=== PATIENT | female | born 1960 | race Caucasian/White ===

== ENCOUNTER 2020-01-08 15:08 | Outpatient (REF) | payer MEDICAID, SELFPAY ==
--- NOTE | 2020-01-08 | XR_ITS ---
EXAMINATION: XR CHEST CLINICAL INFORMATION: Shortness of breath. COMPARISON: Chest x-ray 02/26/2009 TECHNIQUE: 2 views of the chest were obtained. FINDINGS: No significant abnormality is noted involving the heart, lungs, mediastinum, bony thorax or soft tissues. XR/XR chest 2V IMPRESSION: Unremarkable examination.
== END 2020-01-08 15:09 | disposition home or self-care (01) ==
LOC: HO.HMGCX 15:08
PROVIDERS: PCP Internal Medicine; Visit Provider Internal Medicine
DX: R06.02 Shortness of breath (principal); Z87.09 Personal history of other diseases of the respiratory system
CPT/HCPCS: 71046

== ENCOUNTER 2021-04-08 13:18 | Outpatient (REF) | payer MEDICAID, SELFPAY ==
--- NOTE | ~2021-04-08 | XR_ITS ---
EXAMINATION: XR CHEST CLINICAL INFORMATION: Cough. Covid 19. COMPARISON: Chest radiograph dated 01/08/2020. TECHNIQUE: 2 views of the chest were obtained. FINDINGS: The lungs are clear. The cardiomediastinal silhouette is normal in size. There is no pleural effusion or pneumothorax. No acute osseous abnormality. XR/XR chest 2V IMPRESSION: No acute cardiopulmonary findings.
== END 2021-04-08 13:19 | disposition home or self-care (01) ==
LOC: HO.HMGCX 13:18
PROVIDERS: PCP Internal Medicine; Visit Provider Internal Medicine
DX: R05.9 Cough, unspecified (principal); Z86.16 Personal history of COVID-19
CPT/HCPCS: 71046

== ENCOUNTER 2021-06-17 15:52 | Outpatient (REF) | payer MEDICAID, SELFPAY ==
--- NOTE | ~2021-06-17 | XR_ITS ---
EXAMINATION: XR LUMBOSACRAL SPINE CLINICAL INFORMATION: Low back pain. Pain SI joint. COMPARISON: 04/03/2015 TECHNIQUE: Three views of the lumbosacral spine. FINDINGS: There are 5 nonrib-bearing lumbar vertebra. No acute fracture, spondylolisthesis, or spondylolysis is identified. There is mild narrowing of the L5-S1 disc space with some mild sclerosis about the facet joints consistent with facet arthropathy. Sacroiliac joints appear unremarkable. Pedicles are intact. XR/XR lumbar spine 2-3V IMPRESSION: Mild degenerative change of the lumbar spine as described with bilateral facet arthropathy at the L5-S1 level. No significant sacroiliac joint abnormality appreciated.
== END 2021-06-17 15:53 | disposition home or self-care (01) ==
LOC: HO.HMGCX 15:52
PROVIDERS: PCP Internal Medicine; Visit Provider Internal Medicine
DX: M54.50 Low back pain, unspecified (principal)
CPT/HCPCS: 72100

== ENCOUNTER 2021-07-01 09:08 | Outpatient (REF) | payer MEDICAID, SELFPAY ==
--- NOTE | ~2021-07-01 | MM_ITS ---
EXAMINATION: BONE DENSITOMETRY CLINICAL INDICATION: Menopause. COMPARISON: Previous BD dated 03/30/2018 and baseline BD dated 03/26/2017. TECHNIQUE: Using a Qubit DXA System (software version: 13.1) manufactured by [employer], dual-energy x-ray absorptiometry was performed of the lumbar spine and left hip. The images are of good technical quality. Summary results are attached. FINDINGS: AP SPINE L1-L4: Current: BMD 0.857 g/cm2, Z-score -1.3, T-score -2.7, osteoporosis, 8.1% decrease from previous, 5.9% decrease from baseline (<5% change is not significant). Prior: BMD 0.933 g/cm2. Baseline: BMD 0.911 g/cm2. LEFT FEMUR, NECK: Current: BMD 0.628 g/cm2, Z-score -1.6, T-score -2.9, osteoporosis. Prior: BMD 0.713 g/cm2. Baseline: BMD 0.759 g/cm2. LEFT FEMUR, TOTAL: Current: BMD 0.638 g/cm2, Z-score -1.8, T-score -2.9, osteoporosis, 12.5% decrease from previous, 14.9% decrease from baseline (<5% change is not significant). Prior: BMD 0.729 g/cm2. Baseline: BMD 0.750 g/cm2. IDENTIFIED RISK FACTORS: Menopause, height loss, glucocorticoids (chronic), history of fracture (adult), tobacco use (current smoker). HISTORY OF FRACTURE: Ribs. MEDICATIONS: Calcium, vitamin D. MM/XR DEXA axial skeleton IMPRESSION: 1. DIAGNOSIS: Osteoporosis based on the lowest T-score value of -2.9 in the femur neck and total femur applying World Health Organization criteria. 2. 10-YEAR FRACTURE RISK PREDICTION, FRAX: According to the guidelines, FRAX calculation should only be performed on patients in the osteopenia bone density category. Therefore, FRAX was not performed on this patient. 3. Treatment Recommendations: NOF guidelines recommend consideration for treatment in postmenopausal women and men age 50 and older presenting with the following: -A hip or vertebral (clinical or morphometric) fracture. -T-score less than or equal to -2.5 at the femoral neck or spine after appropriate evaluation to exclude secondary causes. -Low bone mass at the hip or spine and a 10-year fracture probability by FRAX of greater than or equal to 3% for hip fracture or greater than or equal to 20% for major osteoporotic fracture based on the [place] adapted WHO algorithm. 4. Other Recommendations: All treatment decisions require clinical judgment and consideration of individual patient factors, including patient preferences, comorbidities, previous drug use, risk factors not captured in the FRAX model (e.g. frailty, falls, vitamin D deficiency, increased bone turnover, interval significant decline in bone density) and possible under or overestimation of fracture risk by FRAX. Additional medical evaluation for secondary cause of low bone mineral density may be appropriate. FUTURE SCAN RECOMMENDATION: People with diagnosed cases of osteoporosis or at high risk for fracture should have regular bone mineral density tests. For patients eligible for Medicare, routine testing is allowed once every 2 years. The testing frequency can be increased to one year for patients who have rapidly progressing disease, those who are receiving or discontinuing medical therapy to restore bone mass, or have additional risk factors.
--- NOTE | ~2021-07-01 | MM_ITS ---
EXAMINATION: MM SCREENING DIGITAL BREAST TOMOSYNTHESIS, BILATERAL CLINICAL INFORMATION: Screening. Asymptomatic. The lifetime risk of breast cancer based on the Tyrer-Cuzick Model is 6%. COMPARISON: Mammography: 03/30/2018, 03/26/2017, 02/01/2013 TECHNIQUE: Digital breast tomosynthesis is performed in both the craniocaudal and mediolateral oblique views along with computer-aided detection (CAD). Synthesized 2D images are generated from the tomosynthesis. FINDINGS: There are scattered areas of fibroglandular density (ACR BI-RADS breast composition Category b). There are no significant masses, abnormal calcifications, or other abnormalities. There is no developing density or architectural abnormality. The axilla and skin contours are unremarkable. No significant changes. MM/MM tomosynthesis screening BI IMPRESSION: No mammographic evidence of malignancy. ASSESSMENT: BI-RADS 1: Negative RECOMMENDATION: Routine annual mammography screening. This patient's information was entered into a reminder system with a target due date for their next mammogram.
== END 2021-07-01 09:09 | disposition home or self-care (01) ==
LOC: HO.MAMMO 09:08
PROVIDERS: PCP Internal Medicine; Visit Provider Internal Medicine
DX: Z12.31 Encounter for screening mammogram for malignant neoplasm of breast (principal); Z13.820 Encounter for screening for osteoporosis; R10.9 Unspecified abdominal pain; F17.210 Nicotine dependence, cigarettes, uncomplicated; Z78.0 Asymptomatic menopausal state; Z79.899 Other long term (current) drug therapy
CPT/HCPCS: 77063; 77067; 77080

== ENCOUNTER → 2021-09-18 14:10 | Outpatient (BNVA) | payer MEDICAID, SELFPAY | PROVIDERS: PCP Internal Medicine; Visit Provider Hospitalist | DX: J44.9 Chronic obstructive pulmonary disease, unspecified (principal); J96.10 Chronic respiratory failure, unspecified whether with hypoxia or hypercapnia; F17.200 Nicotine dependence, unspecified, uncomplicated | CPT/HCPCS: 94618; 99202 ==

== ENCOUNTER 2021-09-23 09:36 | Outpatient (REF) | payer MEDICAID, SELFPAY ==
--- NOTE | 2021-09-23 | PFT_ITS ---
FLOWS: FEV1 27% of predicted at 0.58 L. FVC 61% of predicted at 1.68 L. Positive bronchodilator response. LUNG VOLUMES: Total lung capacity 112% of predicted at 4.85 L. Residual volume 205% of predicted at 3.56 L. Slow vital capacity 50% of predicted at 1.30 L. Expiratory reserve volume 57% of predicted at 0.38 L. Diffusion capacity is moderately decreased, diffusion capacity adjust to being mildly decreased after correction for alveolar ventilation. IMPRESSION: Very severe obstructive ventilatory defect with positive bronchodilator response. Increased residual volume suggests air trapping. Decreased diffusion capacity suggests emphysema. Ismael Menchaca MD AP/MODL / [phone]
== END 2021-09-23 09:37 | disposition home or self-care (01) ==
LOC: HO.RESP 09:36
PROVIDERS: PCP Internal Medicine; Visit Provider Internal Medicine
DX: R07.9 Chest pain, unspecified (principal)
CPT/HCPCS: 94060; 94727; 94729

== ENCOUNTER → 2021-11-11 10:00 | Outpatient (BNVA) | payer MEDICAID, SELFPAY | PROVIDERS: PCP Internal Medicine; Visit Provider Hospitalist | DX: J44.9 Chronic obstructive pulmonary disease, unspecified (principal); J96.10 Chronic respiratory failure, unspecified whether with hypoxia or hypercapnia; F17.210 Nicotine dependence, cigarettes, uncomplicated | CPT/HCPCS: 99212 ==

== ENCOUNTER 2021-11-14 13:41 | Outpatient (REF) | payer MEDICAID, SELFPAY ==
--- NOTE | ~2021-11-14 | CT_ITS ---
EXAMINATION: CT CHEST SCREENING CLINICAL INFORMATION: Nicotine dependence. Former smoker 1 pack per day x43 years. Quit smoking. COMPARISON: Chest x-ray 04/08/2021. TECHNIQUE: Multidetector volumetric CT imaging of the chest is performed without contrast using low dose technique. Additional 2D coronal and sagittal reformatted images and axial 3D maximum intensity projection (MIP) images are generated on the CT workstation. This CT examination was performed using dose optimization techniques as appropriate, variously including the following: *Automated exposure control *Adjustment of mA and/or kV according to patient size (this includes techniques or standardized protocols for targeted exams where dose is matched to indication/reason for exam; i.e. extremities or head) *Use of iterative reconstruction technique DLP: 48 mGy-cm FINDINGS: LUNGS: The lungs are well expanded and clear. No acute pneumonic process, ground-glass density or pulmonary nodule seen. MEDIASTINUM: The thyroid lobes are symmetric and normal. The central trachea and the bronchi are widely patent. The heart size and the great vessels are normal caliber. No pericardial effusion. No abnormal size mediastinal or hilar lymph nodes. CORONARY ARTERY CALCIFICATION: None visualized on this study. PLEURA: There is no pleural effusion. No pleural mass or thickening. AXILLA: There are small bilateral axillary lymph nodes. The chest wall is unremarkable. UPPER ABDOMEN: The visualized liver, spleen, pancreas, and bilateral adrenal glands are unremarkable. OSSEOUS STRUCTURES: No lytic or sclerotic process seen. There is exaggerated thoracic kyphosis. CT/CT lung screening IMPRESSION: Unremarkable CT chest exam. ASSESSMENT: Lung-RADS category 1: Negative RECOMMENDATION: Low-dose annual CT chest
== END 2021-11-14 13:42 | disposition home or self-care (01) ==
LOC: HO.CT 13:41
PROVIDERS: Visit Provider Physician Assistant Medical
DX: Z12.2 Encounter for screening for malignant neoplasm of respiratory organs (principal); Z87.891 Personal history of nicotine dependence
CPT/HCPCS: 71271; G0296

== ENCOUNTER → 2022-02-10 10:27 | Outpatient (BNVA) | payer MEDICAID, SELFPAY | PROVIDERS: PCP Internal Medicine; Visit Provider Hospitalist | DX: J44.9 Chronic obstructive pulmonary disease, unspecified (principal); J96.10 Chronic respiratory failure, unspecified whether with hypoxia or hypercapnia; R07.9 Chest pain, unspecified; F17.200 Nicotine dependence, unspecified, uncomplicated; Z79.52 Long term (current) use of systemic steroids; Z79.899 Other long term (current) drug therapy | CPT/HCPCS: 99212 ==

== ENCOUNTER → 2022-02-19 13:53 | Outpatient (BNVA) | payer MEDICAID, SELFPAY | PROVIDERS: PCP Internal Medicine; Visit Provider Internal Medicine | DX: R07.89 Other chest pain (principal); R00.1 Bradycardia, unspecified; J96.10 Chronic respiratory failure, unspecified whether with hypoxia or hypercapnia; Z87.891 Personal history of nicotine dependence; Z86.16 Personal history of COVID-19; Z99.81 Dependence on supplemental oxygen; Z79.52 Long term (current) use of systemic steroids; Z79.899 Other long term (current) drug therapy | CPT/HCPCS: 93005; 99202 ==

== ENCOUNTER → 2022-03-09 12:56 | Outpatient (REF) | payer MEDICAID, SELFPAY ==
--- NOTE | 2022-03-09 12:59 | CA_ITS ---
Transthoracic Echocardiogram Patient (Last, First, Middle): Jenny Dumont Anne Gender: Female Date of : 1960 Age: 62 Procedure Date: 03/09/2022 Procedure Type: Transthoracic Echocardiogram Location: OP Height: 152.4 cm Weight: 58.97 kg BSA: 1.55 m2 Heart Rate: 104 bpm BP: 152 / 88 mmHg Automotive General Manager: SB Referring MD: Caden Atkins MD Symptoms: R07.9 - Chest pain, unspecified Study Quality: Adequate ECG Rhythm: Sinus tachycardia Conclusions: - The left ventricular systolic function is mildly decreased. The calculated ejection fraction is 51% by biplane method. - No obvious valvular pathology seen on this study. Findings Left Ventricle Normal left ventricular cavity size. There is normal left ventricular wall thickness. The left ventricular systolic function is mildly decreased. The calculated ejection fraction is 51% by biplane method. There is mild global hypokinesis. Diastolic function is normal for age. LV peak GLS -11.4%. Right Ventricle Normal right ventricular cavity size and systolic function. Atria Both atria are normal in size. Aortic Valve There is a normal trileaflet aortic valve. There is no aortic valve stenosis. There is no aortic valve regurgitation. Mitral Valve The mitral valve appears normal. There is no mitral valve regurgitation. There is no mitral valve stenosis. Pulmonic Valve The pulmonic valve is likely normal. Tricuspid Valve Normal tricuspid valve structure. There is no tricuspid valve regurgitation. There is no evidence of pulmonary hypertension. Great Vessels The aortic annulus, sinuses of valsalva, and asc aorta are normal in size. Venous The inferior vena cava is normal in size and collapses greater than 50% with inspiration. Pericardium/Pleural There is no evidence of pericardial effusion. Prior Study Comparison No prior study available for comparison. Recommendations, Care & Conclusions No obvious valvular pathology seen on this study. Measurements 2D Linear Measurements IVSd: 0.75 0.6-0.9/0.6-1.0 cm LVIDd: 4.46 3.9-5.3/4.2-5.9 cm LVIDd Index: 2.88 2.4-3.2/2.2-3.1 cm/m2 LVIDs: 3.49 2.0-3.6 cm LVPWd: 0.76 0.7-1.1 cm LA Diam: 2.70 2.7-3.8/3.0-4.0 cm LAIDs Index: 1.74 1.5-2.3 cm/m2 LV Mass: 128.80 67-162/88-224 g LV Mass Index: 83.10 43-95/49-115 g/m2 LVOT Diam: 2.00 3.0+(-)1.3 cm 2D Systolic Function EF 4C: 48.10 >55% EF 2C: 54.00 >55% EF BiP: 50.70 >55% Mitral Valve MV Pk E: 0.77 MV PK A: 0.83 MV Decel Time: 151.00 E/A: 0.90 E'Lateral: 7.07 E'Medial: 7.07 E/E' Med: 10.90 E/E' Lat: 10.90 PHT: 44.00 MVA PHT: 5.00 Decel [place]: 5.12 Aortic Valve AoV Pk Waldemar: 1.27 AoV Pk Grad: 6.00 BASSAM: 2.26 LVOT LVOT Pk Waldemar: 0.91 LVOT Mn Waldemar: 0.61 LVOT VTI: 0.17 LVOT Pk Grad: 3.00 LVOT Mn Grad: 2.00 LVOT Diam: 2.00 LVOT Area: 3.14 Diastolic Function MV Pk E: 0.77 MV Pk A: 0.83 E/A: 0.90 E'Medial: 7.07 E/E' Med: 10.90 E' Laterial: 7.07 E/E' Lat: 10.90 Right Ventricle TAPSE (mm): 17.70 TVS' Waldemar: 12.60 Tricuspid Valve TR Pk Waldemar: 1.66 TR Pk Grad: 11.00 RA Press: 3.00 RVSP: 14.00 Great Vessels Aorta Sinus of Valsalva: 2.40 2.0-3.5 cm Ao Asc: 2.70 2.1-3.4 cm Pulmonary Valve PV Pk Waldemar: 0.84 Peak PV Grad: 3.00 Updated in Other Vendor System with Status of Final Caden Atkins MD electronically signed on 03/10/2022 8:27:03 AM with status of Final
== END ==
LOC: HO.CARD 12:56
PROVIDERS: Visit Provider Internal Medicine
DX: R07.9 Chest pain, unspecified (principal)
CPT/HCPCS: 93306; 93356

== ENCOUNTER → 2022-04-23 12:47 | Outpatient (BNVA) | payer MEDICAID, SELFPAY | PROVIDERS: PCP Internal Medicine; Referring Provider Internal Medicine; Visit Provider Internal Medicine | DX: R07.89 Other chest pain (principal); R00.0 Tachycardia, unspecified; J96.10 Chronic respiratory failure, unspecified whether with hypoxia or hypercapnia; J44.9 Chronic obstructive pulmonary disease, unspecified; Z87.891 Personal history of nicotine dependence; Z86.16 Personal history of COVID-19; Z99.81 Dependence on supplemental oxygen | CPT/HCPCS: 99212 ==

== ENCOUNTER 2022-06-12 11:23 | Outpatient (REF) | payer MEDICAID, SELFPAY ==
--- NOTE | ~2022-06-12 | XR_ITS ---
EXAMINATION: XR MANDIBLE CLINICAL INFORMATION: Jaw pain and tenderness COMPARISON: None available. TECHNIQUE: 4 views of the mandible were obtained. FINDINGS: Numerous absent maxillary and mandibular teeth. No appreciable acute fracture or dislocation. Temporomandibular joint spaces are maintained. XR/XR mandible min 4V IMPRESSION: No acute osseous abnormality. If clinical concern persists, CT face be more sensitive for evaluation.
== END 2022-06-12 11:24 | disposition home or self-care (01) ==
LOC: HO.HMGCX 11:23
PROVIDERS: PCP Internal Medicine; Visit Provider Internal Medicine
DX: R68.84 Jaw pain (principal)
CPT/HCPCS: 70110

== ENCOUNTER 2022-07-17 12:17 | Outpatient (REF) | payer MEDICAID, SELFPAY ==
--- NOTE | ~2022-07-17 | XR_ITS ---
EXAMINATION: XR LUMBOSACRAL SPINE CLINICAL INFORMATION: Low back pain COMPARISON: Previous x-ray May 2021 TECHNIQUE: Three views of the lumbosacral spine. FINDINGS: There is curvature of the lower thoracic and upper lumbar spine to the left. Bone alignment is otherwise normal. No fracture or dislocation. Normal disc spaces. Lower lumbar spine facet arthritis. Atherosclerotic disease. XR/XR lumbar spine 2-3V IMPRESSION: Scoliosis and degenerative changes.
== END 2022-07-17 12:18 | disposition home or self-care (01) ==
LOC: HO.HMGCX 12:17
PROVIDERS: PCP Internal Medicine; Visit Provider Internal Medicine
DX: M54.50 Low back pain, unspecified (principal)
CPT/HCPCS: 72100

== ENCOUNTER → 2022-08-04 10:03 | Outpatient (BNVA) | payer MEDICAID, SELFPAY | PROVIDERS: PCP Internal Medicine; Visit Provider Hospitalist | DX: J44.1 Chronic obstructive pulmonary disease with (acute) exacerbation (principal); J96.10 Chronic respiratory failure, unspecified whether with hypoxia or hypercapnia | CPT/HCPCS: 99212 ==

== ENCOUNTER 2022-12-01 10:11 | Outpatient (AMB) | payer MEDICAID, SELFPAY ==
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
[2022-12-01 10:28] VITALS: BP 126/72; PULSE 80; O2SAT 99; BMI 25.4
== END 2022-12-01 10:48 | disposition home or self-care (01) ==
PROVIDERS: PCP Internal Medicine; Visit Provider Hospitalist
DX: J44.1 Chronic obstructive pulmonary disease with (acute) exacerbation (principal); J96.11 Chronic respiratory failure with hypoxia
CPT/HCPCS: 99214

== ENCOUNTER → 2022-12-01 10:11 | Outpatient (BNVA) | payer MEDICAID, SELFPAY | PROVIDERS: PCP Internal Medicine; Visit Provider Hospitalist | DX: J44.1 Chronic obstructive pulmonary disease with (acute) exacerbation (principal); J96.11 Chronic respiratory failure with hypoxia; Z79.899 Other long term (current) drug therapy | CPT/HCPCS: 99212 ==

== ENCOUNTER 2023-03-04 09:36 | Outpatient (AMB) | payer MEDICAID, SELFPAY ==
--- NOTE | 2023-03-04 10:05 | MHC.OFFVIS ---
Intake Vital Signs 03/04/23 10:07 Weight 66.5 kg Pulse 95 Pulse Source Pulse Oximeter Pulse Oximetry (%) 97 Oxygen Delivery Method Room Air Intake Visit Reasons: 6 Mins Walk/O2 criteria Allergies azithromycin [From ZITHROMAX] Allergy (Unknown, Verified 03/04/23 10:11) UNKNOWN Penicillins [PCN] Allergy (Unknown, Verified 03/04/23 10:11) UNKNOWN Medication List - Last Reconciled 03/04/23 by Yasmine De La Garza LPN albuterol sulfate 90 mcg/actuation (ProAir HFA) 2 puffs inhalation Q6H PRN albuterol sulfate 0.63 mg inhalation Q4-6H PRN budesonide-formoterol 80-4.5 mcg/actuation (Symbicort) 2 puffs inhalation BID calcium phosphate-vitamin D3 250 mg calcium- 250 unit tabs PO doxycycline hyclate 100 mg PO BID 10 days ipratropium-albuterol 0.5 mg-3 mg(2.5 mg base)/3 mL 3 mL inhalation QID PRN levalbuterol HCl 1.25 mg (3 mL) inhalation BID 30 days levalbuterol tartrate 45 mcg/actuation (Xopenex HFA) 2 puffs inhalation Q6H PRN 30 days nebulizers As directed Oxygen Home Use As directed prednisone 5 mg PO DAILY roflumilast (Daliresp) 250 mcg PO DAILY 30 days tiotropium bromide 2.5 mcg/actuation (Spiriva Respimat) 2 puffs inhalation DAILY 90 days [facility] Medical History (Updated 12/01/22 @ 12:55 by Miguel A Suárez MD) Chest pain On home O2 History of COVID-19 (~2021) Osteoporosis Personal history of nicotine dependence Chronic respiratory failure COPD (chronic obstructive pulmonary disease) Surgical History History of colonoscopy History of hysteroscopy Family History Brother Myocardial infarction Social History Patient Tobacco Use Status: Former Tobacco user Years Smoked: (onset 18yo, 1ppd x 43yrs, 40pyh - quit 10/2021) Office Procedures 6 Minute Walk Time:: 10:00 SPO2 % at rest: 97 Pulse at rest: 95 SPO2 % during excercise: 88 Pulse during excercise: 149 SPO2 % after excercise: 98 Pulse after excercise: 98 Distance in yards walked: 260 Nicole Score: 7 Performance Observations:: Jenny Santos walked on level ground, she walked on room air for 2 minutes before her SPO2 decreased to 88%. O2 started at 2 lpm and her SPO2 increased to 94% her HR 149 and with rest recovered to 98 bpm. [id number] - 6 Minute Walk Assessment & Plan Assessment & Plan (1) COPD (chronic obstructive pulmonary disease): Code(s): J44.9 - Chronic obstructive pulmonary disease, unspecified Qualifiers: COPD type: COPD with acute exacerbation Qualified Code(s): J44.1 - Chronic obstructive pulmonary disease with (acute) exacerbation Plan 6MWT Orders: Orders AMB 6 minute walk Today J44.9 - Chronic obstructive pulmonary disease, unspecified Quality Reporting (2019) Adult ([facility] 138/04/22/68) Smoking risk assessment performed?: Yes Patient Tobacco Use Status: Former Tobacco user Coding Level of Care Code Est Pt Level 1 (51571) Diagnoses Chronic obstructive pulmonary disease with acute exacerbation J44.1 COPD type: COPD with acute exacerbation CPT Codes Coding ([id number]) Comment NURSE VISIT ONLY
[2023-03-04 10:07] VITALS: PULSE 95; O2SAT 97
[2023-03-04 10:16] VITALS: PULSE 95; O2SAT 97
== END 2023-03-04 10:45 | disposition home or self-care (01) ==
PROVIDERS: PCP Internal Medicine; Referring Provider Internal Medicine; Visit Provider Hospitalist
DX: J44.1 Chronic obstructive pulmonary disease with (acute) exacerbation (principal)
CPT/HCPCS: 94618

== ENCOUNTER → 2023-03-04 09:36 | Outpatient (BNVA) | payer MEDICAID, SELFPAY | PROVIDERS: PCP Internal Medicine; Visit Provider Hospitalist | DX: J44.1 Chronic obstructive pulmonary disease with (acute) exacerbation (principal) | CPT/HCPCS: 94618; 99211 ==

== ENCOUNTER 2023-03-10 17:21 | Emergency (ER) | payer MEDICAID, SELFPAY ==
--- NOTE | ~2023-03-10 | XR_ITS ---
EXAMINATION: XR RIBS, LEFT CLINICAL INFORMATION: [place] a pop. Left rib mid axillary pain. COMPARISON: None available. TECHNIQUE: 3 views of the left ribs were obtained. Chest PA. FINDINGS: Chest: Lungs are clear. No consolidation, pneumothorax, or pleural effusion. The cardiomediastinal silhouette and pulmonary vasculature are normal. Left RIBS: Multiple views of left ribs reveal no visible fracture or bony abnormality. The soft tissues are normal.. XR/XR ribs LT min 3V w CXR1V IMPRESSION: 1. Unremarkable chest exam. 2. Unremarkable left rib exam. .
[2023-03-10 17:34] VITALS: BP 138/96; PULSE 97; RESP 19; TEMP 36.6; O2SAT 99; BMI 28.1
[2023-03-10 18:10] VITALS: BP 146/91; PULSE 96; RESP 16; O2SAT 98
--- NOTE | 2023-03-10 18:15 | PC.NURSE ---
Patient awake and alert. skin pwd, resp even and non labored, speaking in full, clear sentences. c/o /10 pain to left ribs. patient states she was helping to move a grandfather clock today and felt a pop in left ribs. awaiting initial provider hilda
--- NOTE | 2023-03-10 18:59 | ED.GENADULT ---
HPI - General Adult General Chief complaint: General Medical Stated complaint: heard a 'pop' in her ribs/side Time Seen by Provider: 03/10/23 18:48 Source: patient and RN notes reviewed Mode of arrival: ambulatory Limitations: no limitations History of Present Illness HPI narrative: This is a 63-year-old female, with a history of COPD on 2 L nasal cannula, osteoporosis, presenting to the emergency department with complaints of left-sided rib pain x2 hours. Patient states that while she was attempting to move a heavy clock she suddenly felt a pop sensation in her left side and immediately had sharp pain in her left rib. Patient denies any shortness of breath, or chest pain. Denies any fevers, chills, abdominal pain, nausea, vomiting or diarrhea. She is otherwise feeling well. Reports history of rib fractures in the past due to her osteoporosis. No other complaints or concerns at this time. MD complaint: Left rib pain Onset (ago): hour(s) Radiation: non-radiation Quality: aching Pain Consistency: constant Relieving factors: none Exacerbating factors: none Associated symptoms: denies other symptoms Treatments prior to arrival: none Related Data Home Medications Medication Instructions Recorded Confirmed albuterol sulfate 0.63 mg/3 mL 0.63 mg inhalation Q4-6H PRN 09/18/21 03/04/23 solution for nebulization albuterol sulfate 90 mcg/actuation 2 puff inhalation Q6H PRN 09/18/21 03/04/23 aerosol inhaler (ProAir HFA) budesonide-formoterol HFA 80 2 puff inhalation BID 09/18/21 03/04/23 mcg-4.5 mcg/actuation aerosol inhaler (Symbicort) calcium phosphate-vitamin D3 250 tab PO 09/18/21 03/04/23 mg calcium-250 unit chewable tablet ipratropium 0.5 mg-albuterol 3 mg 3 ml inhalation QID PRN 09/18/21 03/04/23 (2.5 mg base)/3 mL nebulization soln prednisone 5 mg tablet 5 mg PO DAILY 09/18/21 03/04/23 Oxygen Home Use 08/04/22 03/04/23 nebulizers 08/04/22 03/04/23 Previous Rx's Medication Instructions Recorded tiotropium bromide 2.5 2 puff inhalation DAILY 90 days #3 11/11/21 mcg/actuation mist for inhalation ea (Spiriva Respimat) roflumilast 250 mcg tablet 250 mcg PO DAILY 30 days #30 tabs 02/10/22 (Daliresp) doxycycline hyclate 100 mg capsule 100 mg PO BID 10 days #20 caps 08/04/22 levalbuterol HCl 1.25 mg/3 mL 1.25 mg (3 mL) inhalation BID 30 08/04/22 solution for nebulization days #180 mL levalbuterol tartrate 45 2 puff inhalation Q6H PRN 08/04/22 mcg/actuation aerosol inhaler shortness of breath or wheezing 30 (Xopenex HFA) days #15 grams acetaminophen 500 mg tablet 500 mg PO Q6H PRN pain #30 tabs 03/10/23 (Tylenol Extra Strength) ibuprofen 600 mg tablet 600 mg PO Q6H PRN pain #30 tabs 03/10/23 lidocaine 5 % topical patch 1 patch topical DAILY #30 ea 03/10/23 (Lidoderm) Allergies Allergy/AdvReac Type Severity Reaction Status Date / Time azithromycin [From ZITHROMAX] Allergy Unknown UNKNOWN Verified 03/10/23 17:32 Penicillins [PCN] Allergy Unknown UNKNOWN Verified 03/10/23 17:32 Review of Systems Review of Systems: Yes all other systems are reviewed and are negative Constitutional: Constitutional: Reports as per [facility] Past Medical History Onset Date is defined in the Problem List Problems that require an onset date and time if occurred within 24 hrs of arrival to the ED Aortic Dissection and Rupture; Neurologic impairment; Cardiopulmonary Arrest; Endotracheal Intubation; Insertion or Replacement of Mechanical Circulatory Assist Device Medical History (Updated 03/10/23 @ 19:27 by AMANDA Henry) Chest pain On home O2 History of COVID-19 (~2021) Osteoporosis Personal history of nicotine dependence Chronic respiratory failure COPD (chronic obstructive pulmonary disease) Surgical History History of colonoscopy History of hysteroscopy Family History Family History Brother Myocardial infarction Social History Social History Patient Tobacco Use Status: Former Tobacco user Years Smoked: (onset 18yo, 1ppd x 43yrs, 40pyh - quit 10/2021) Smoked in Last 30 Days: No Use of substances other than those prescribed or required for medical reasons: No Advance Directives: No Advance Directives Information Provided: No Patient : No Physical Exam ED Vital Signs: Vital Signs - 24 hr 03/10/23 17:34 03/10/23 18:10 Temperature 98 F Pulse Rate 97 96 Respiratory Rate 19 16 Blood Pressure 138/96 H 146/91 H Pulse Oximetry 99 98 Oxygen Delivery Method Nasal Cannula Room Air BMI result Body Mass Index 28.1 Const General: cooperative, comfortable and no acute distress Orientation/consciousness: patient oriented x3 Limitations: no limitations HENMT Head: Yes normal to inspection, Yes normocephalic and Yes atraumatic Ears: hearing grossly normal bilaterally General nose exam: Normal external nose present Face and sinus: Yes normal facial exam Mouth: Normal oral and palatal mucosa present, oropharynx normal and moist mucous membranes Throat: Yes posterior oropharynx normal Eyes General: appearance normal, both eyes and all related structures Eyelids: Yes eyelids normal Conjunctivae: conjunctivae normal Sclerae: sclerae normal Pupils: Equal, round and reactive pupils present EOM: EOMs intact bilaterally Neck Neck: Yes normal visual inspection, Yes full ROM and Yes no lymphadenopathy Lymphatic: no lymphadenopathy noted Chest Other: Tenderness palpation along the left lateral ribs, no obvious bony step-off or deformity. Chest palpation & inspection: normal inspection of the chest Resp Effort & Inspection: normal respiratory effort and able to speak in complete sentences Auscultation: clear to auscultation bilaterally, no crackles, no rales, no rhonchi and no wheezes Cardio Rate: regular rate Rhythm: regular rhythm Heart sounds: S1 normal heart sound present and S2 normal heart sound present GI Inspection: Yes normal to inspection Skin General skin exam: no rashes or lesions noted Trauma: no lacerations or abrasions Wounds: no wounds Neuro General: patient oriented x3 and moves all extremities Cranial nerves: Yes Equal, round and reactive pupils present Extrem General: Yes normal to inspection Right upper extremity: normal to inspection Left upper extremity: normal to inspection Right lower extremity: normal to inspection Left lower extremity: normal to inspection Course Reevaluation(s) Reevaluation #1: X-rays were reviewed. No rib fracture seen. Normal chest. Discussed findings with patient and at bedside. Educated the importance of taking deep breaths for prevention of pneumonia. Given return precautions. Patient understands agrees with plan. No other complaints or concerns at the time stable for discharge Time: 19:30 Medical Decision Making Medical Decision Making MDM Narrative: This is a 63-year-old female, with a history of COPD on 2 L nasal cannula and osteoporosis, presenting to the emergency department with complaints of left-sided rib pain status post moving a heavy o'clock this afternoon. On arrival, blood pressure 138/96, oxygen saturation 99% on nasal cannula 2 L (which is typical of her). She has tenderness to palpation along the left lateral ribs without any bony step-off or deformity. Lungs are clear to auscultation bilaterally. Patient has no chest pain or shortness of breath. Differential diagnoses include pneumothorax, rib fracture, chest wall strain, musculoskeletal pain. Plan: X-ray left ribs and chest ordered. Differential Diagnosis Differential Diagnoses: The differential diagnosis associated with the presentation includes See above Admission/Observation Consideration of admission/observation: Escalation of care including admission/observation considered Patient would have been admitted to the hospital had her work up had any findings where hospital admission was appropriate and her clinical presentation warranted hospital admission. Radiology Impression Discussion of test interpretation with radiology: I have reviewed the radiologist's reading. Radiologist Impression: EXAMINATION: XR RIBS, LEFT CLINICAL INFORMATION: [place] a pop. Left rib mid axillary pain. COMPARISON: None available. TECHNIQUE: 3 views of the left ribs were obtained. Chest PA. FINDINGS: Chest: Lungs are clear. No consolidation, pneumothorax, or pleural effusion. The cardiomediastinal silhouette and pulmonary vasculature are normal. Left RIBS: Multiple views of left ribs reveal no visible fracture or bony abnormality. The soft tissues are normal.. XR/XR ribs LT min 3V w CXR1V IMPRESSION: 1. Unremarkable chest exam. 2. Unremarkable left rib exam. . Dictated By: Khoa Lopez MD Independent Historian Clinical information obtained from an independent historian. History obtained from or confirmed by: Spouse at bedside Discharge Plan Discharge Clinical Impression: Rib pain on left side, Muscle strain Patient Disposition: Home, Self-Care Instructions: Musculoskeletal Pain (ED) Additional Instructions: The emergency department due to left rib pain. Your x-rays did not show a rib fracture in your chest x-ray was normal. Please rest, ice the area or apply heat to the area for relief. You may take ibuprofen and/or Tylenol as needed for symptoms. You may also apply Lidoderm patches to your side for pain relief. It is very important for you to continually take deep breath several times per hour to prevent pneumonia. You may also shoulder side fall coughing to help support the area that is causing you pain. If any new or worsening symptoms occur including but not limited to chest pain or shortness of breath, please return for re-evaluation. Prescriptions: New lidocaine [Lidoderm] 5 % adhesive patch,medicated 1 patch topical DAILY Qty: 30 0RF Rx Instructions: leave on most painful area for up to 12 hrs ibuprofen 600 mg tablet 600 mg PO Q6H PRN (Reason: pain) Qty: 30 0RF acetaminophen [Tylenol Extra Strength] 500 mg tablet 500 mg PO Q6H PRN (Reason: pain) Qty: 30 0RF No Action roflumilast [Daliresp] 250 mcg tablet 250 mcg PO DAILY 30 Days Qty: 30 11RF (DME) Oxygen Home Use Kit See Rx Instructions .Route Rx Instructions: As directed (DME) nebulizers [facility] See Rx Instructions .Route Rx Instructions: As directed levalbuterol tartrate [Xopenex HFA] 45 mcg/actuation HFA aerosol inhaler 2 puff inhalation Q6H PRN (Reason: shortness of breath or wheezing) 30 Days Qty: 15 11RF levalbuterol HCl 1.25 mg/3 mL solution for nebulization 1.25 mg inhalation BID 30 Days Qty: 180 0RF doxycycline hyclate 100 mg capsule 100 mg PO BID 10 Days Qty: 20 0RF prednisone 5 mg tablet 5 mg PO DAILY budesonide-formoterol [Symbicort] 80-4.5 mcg/actuation HFA aerosol inhaler 2 puff inhalation BID albuterol sulfate [ProAir HFA] 90 mcg/actuation HFA aerosol inhaler 2 puff inhalation Q6H PRN ipratropium-albuterol 0.5 mg-3 mg(2.5 mg base)/3 mL solution for nebulization 3 ml inhalation QID PRN albuterol sulfate 0.63 mg/3 mL solution for nebulization 0.63 mg inhalation Q4-6H PRN calcium phosphate-vitamin D3 250 mg calcium- 250 unit tablet,chewable PO Spiriva Respimat 2.5 mcg/actuation mist 2 puff inhalation DAILY 90 Days Qty: 3 3RF
[2023-03-10 19:46] VITALS: BP 130/69; PULSE 88; RESP 16; TEMP 36.6; O2SAT 98
== END 2023-03-10 19:47 | disposition home or self-care (01) ==
PROVIDERS: Emergency Provider Emergency Medicine; PCP Internal Medicine
DX: R07.81 Pleurodynia (principal); S29.011A Strain of muscle and tendon of front wall of thorax, initial encounter; X50.9XXA Other and unspecified overexertion or strenuous movements or postures, initial encounter; Y93.9 Activity, unspecified; Y92.9 Unspecified place or not applicable; Y99.9 Unspecified external cause status
CPT/HCPCS: 71101; 99283; 99284

== ENCOUNTER 2023-04-07 15:17 | Outpatient (REF) | payer MEDICAID, SELFPAY | END 2023-04-07 15:18 | disposition home or self-care (01) | LOC: HO.MAMMO 15:17 | PROVIDERS: PCP Internal Medicine; Visit Provider Internal Medicine | DX: Z12.31 Encounter for screening mammogram for malignant neoplasm of breast (principal) | CPT/HCPCS: 77063; 77067 ==

== ENCOUNTER → 2023-04-07 15:30 | Outpatient (BNV) | payer MEDICAID, SELFPAY | PROVIDERS: PCP Internal Medicine; Visit Provider Radiology Diagnostic Radiology | DX: Z12.31 Encounter for screening mammogram for malignant neoplasm of breast (principal) | CPT/HCPCS: 77063; 77067 ==

== ENCOUNTER 2023-06-01 10:45 | Outpatient (REF) | payer MEDICAID, SELFPAY ==
[2023-06-01 12:00] LABS: MANUAL DIFF FLAG NO
[2023-06-01 12:04] LABS: Venous Blood Gas Refer to POC result
[2023-06-01 12:05] LABS: VBG Base Excess 5.1 mmol/L; VBG HCO3 31 mmol/L (22-26); VBG pCO2 52 mmHg; VBG pH 7.38 (7.32-7.43); VBG pO2 32 mmHg
[2023-06-01 12:14] LABS: Basophils Absolute Auto 0.1 X10*3/uL (0.0-0.2); Basophils Percent Auto 0.7 % (0-2); Eosinophils Absolute Auto 0.2 X10*3/uL (0.0-0.4); Hematocrit 47.3 % (37.0-47.0); Imm Gran Abs Auto 0.09 X10*3/uL (0.00-0.03); Imm Gran Pct Auto 0.8 % (0.0-0.4); Lymphocytes Absolute Auto 1.7 X10*3/uL (1.2-4.9); Lymphocytes Percent Auto 15.3 % (20-40); Mean Corpuscular HGB Conc 31.7 g/dl (31.0-35.0); Mean Corpuscular Hemoglobin 27.2 pg (27.0-33.0); Mean Corpuscular Volume 85.7 fL (80.0-98.0); Mean Platelet Volume 10.2 fL (9.4-12.3); Monocytes Absolute Auto 0.9 X10*3/uL (0.1-1.2); Monocytes Percent Auto 8.1 % (2-11); Neutrophils Absolute Auto 8.2 x10*3/uL (2.0-8.3); Neutrophils Percent Auto 73.1 % (45-73); Platelet Count 250 X10*3/uL (160-400); Red Blood Count 5.52 X10*6/uL (4.20-5.50); Red Cell Distribution Width 14.5 % (11.0-16.0); White Blood Count 11.2 X10*3/uL (4.8-10.8)
[2023-06-01 12:19] LABS: Anion Gap 12 (12-20); Blood Urea Nitrogen 12 mg/dL (9-16); Calcium 9.9 mg/dL (8.4-10.2); Carbon Dioxide 29 mmol/L (22-29); Chloride 105 mmol/L (96-108); Estimated Glomerular Filt Rate > 60; Glucose Random 83 mg/dL (60-115); Potassium 4.3 mmol/L (3.3-5.1); Sodium 142 mmol/L (135-145)
[2023-06-01 12:50] LABS: Erythrocyte Sedimentation Rate 8 MM/HR (0-20)
[2023-06-02 17:29] LABS: Alpha 1 Anti-trypsin 158 mg/dL (83-199)
== END 2023-06-01 10:46 | disposition home or self-care (01) ==
LOC: HO.LAB 10:45
PROVIDERS: PCP Internal Medicine; Visit Provider Hospitalist
DX: J44.1 Chronic obstructive pulmonary disease with (acute) exacerbation (principal); J96.11 Chronic respiratory failure with hypoxia; F17.200 Nicotine dependence, unspecified, uncomplicated; Z86.16 Personal history of COVID-19; Z79.52 Long term (current) use of systemic steroids; Z99.81 Dependence on supplemental oxygen
CPT/HCPCS: 36415; 80048; 82103; 82803; 85025; 85652; 99212

== ENCOUNTER 2023-06-01 10:45 | Outpatient (AMB) | payer MEDICAID, SELFPAY ==
[2023-06-01 11:02] VITALS: PULSE 90; O2SAT 98; BMI 27.9
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
== END 2023-06-01 11:25 | disposition home or self-care (01) ==
PROVIDERS: PCP Internal Medicine; Referring Provider Internal Medicine; Visit Provider Hospitalist
DX: J44.1 Chronic obstructive pulmonary disease with (acute) exacerbation (principal); J96.11 Chronic respiratory failure with hypoxia
CPT/HCPCS: 99214

== ENCOUNTER 2023-11-05 10:47 | Outpatient (AMB) | payer MEDICAID, SELFPAY ==
[2023-11-05 10:53] VITALS: BP 136/78; PULSE 88; O2SAT 99; BMI 28.5
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
== END 2023-11-05 11:18 | disposition home or self-care (01) ==
PROVIDERS: PCP Internal Medicine; Visit Provider Hospitalist
DX: J44.1 Chronic obstructive pulmonary disease with (acute) exacerbation (principal); J96.11 Chronic respiratory failure with hypoxia
CPT/HCPCS: 99214

== ENCOUNTER → 2023-11-05 10:47 | Outpatient (BNVA) | payer MEDICAID, SELFPAY | PROVIDERS: PCP Internal Medicine; Visit Provider Hospitalist | DX: J44.1 Chronic obstructive pulmonary disease with (acute) exacerbation (principal); J96.11 Chronic respiratory failure with hypoxia; F17.200 Nicotine dependence, unspecified, uncomplicated; Z86.16 Personal history of COVID-19; Z79.52 Long term (current) use of systemic steroids; Z99.81 Dependence on supplemental oxygen | CPT/HCPCS: 99212 ==

== ENCOUNTER 2023-12-02 14:19 | Outpatient (REF) | payer MEDICAID, SELFPAY ==
--- NOTE | ~2023-12-02 | XR_ITS ---
EXAMINATION: XR SHOULDER LEFT 3 VIEWS CLINICAL INFORMATION: LEFT SHOULDER PAIN. COMPARISON: XR Chest 04/08/2021 TECHNIQUE: Frontal lateral scapular Y view of the left shoulder. FINDINGS: The bones and soft tissues are normal. No fracture. Glenohumeral and acromioclavicular alignment is anatomic with normal joint space. No abnormal soft tissue calcifications. XR/XR shoulder LT min 2V IMPRESSION: No osseous changes to explain patient's pain symptoms. Electronically signed by: Demario Dominguez MD 02/09/2024 04:30 PM [facility]
== END 2023-12-02 14:20 | disposition home or self-care (01) ==
LOC: HO.HMGCX 14:19
PROVIDERS: PCP Internal Medicine; Visit Provider Internal Medicine
DX: M25.512 Pain in left shoulder (principal)
CPT/HCPCS: 73030

== ENCOUNTER 2024-05-23 10:33 | Outpatient (AMB) | payer MEDICAID, SELFPAY ==
[2024-05-23 10:45] VITALS: BP 170/110; PULSE 106; O2SAT 98; BMI 28.7
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
== END 2024-05-23 11:52 | disposition home or self-care (01) ==
LOC: HO.HPS 10:34
PROVIDERS: PCP Internal Medicine; Visit Provider Hospitalist
DX: J44.1 Chronic obstructive pulmonary disease with (acute) exacerbation (principal); J96.11 Chronic respiratory failure with hypoxia; R07.9 Chest pain, unspecified; I16.0 Hypertensive urgency
CPT/HCPCS: 99215

== ENCOUNTER → 2024-05-23 10:33 | Outpatient (BNVA) | payer MEDICARE, SELFPAY | PROVIDERS: PCP Internal Medicine; Visit Provider Hospitalist | DX: F17.200 Nicotine dependence, unspecified, uncomplicated (principal); J44.9 Chronic obstructive pulmonary disease, unspecified; R07.9 Chest pain, unspecified; J45.909 Unspecified asthma, uncomplicated; J96.10 Chronic respiratory failure, unspecified whether with hypoxia or hypercapnia ==

== ENCOUNTER 2024-05-23 11:11 | Emergency (ER) | payer MEDICARE, SELFPAY ==
--- NOTE | ~2024-05-23 | XR_ITS ---
EXAMINATION: XR CHEST CLINICAL INFORMATION: pain COMPARISON: March 10, 2023. TECHNIQUE: Frontal view of the chest was obtained. FINDINGS: No consolidation, pleural effusion or pneumothorax. No hyperinflation. Cardiomediastinal silhouette size is normal. Osteopenia versus osteoporosis. XR/XR chest 1V IMPRESSION: No acute airspace disease. Electronically signed by: Timoteo Calero MD 05/23/2024 12:05 PM EDT
--- NOTE | 2024-05-23 11:12 | ECG_ITS ---
Test Reason : cp Blood Pressure : */* mmHG Vent. Rate : 106 BPM Atrial Rate : 106 BPM P-R Int : 134 ms QRS Dur : 68 ms QT Int : 318 ms P-R-T Axes : 76 -33 65 degrees QTcB Int : 422 ms Sinus tachycardia Left axis deviation Abnormal ECG No previous ECGs available Referred By: Generic ED Physician Electronically Signed By: ALICIA GONSALES MD
[2024-05-23 11:33] VITALS: BP 176/105; PULSE 118; RESP 22; TEMP 36.7; O2SAT 98; BMI 25.9
--- NOTE | 2024-05-23 11:34 | ED.GENADULT ---
HPI - General Adult General Chief complaint: Chest Pain Stated complaint: Chest pain, arm numbness Time Seen by Provider: 05/23/24 13:31 Source: patient, RN notes reviewed and old records reviewed Mode of arrival: ambulatory History of Present Illness ED Provider: Malika Burnett PA-C HPI narrative: 64-year-old female with a past medical history COPD on 2 L NC PRN, osteoporosis, presenting to the ED sent in from pulmonology office for hypertension and intermittent chest pain radiating down LUE x few weeks when she arrived at her office appointment. Also reports exertional dyspnea. Admits to SOB at baseline, has been slightly worsening for some time. Admits to chronic cough. Denies fever, chills, abdominal pain, nausea/vomiting, pedal edema Related Data Home Medications ?Medication ?Instructions ?Recorded ?Confirmed albuterol sulfate 0.63 mg/3 mL 0.63 mg inhalation Q4-6H PRN 09/18/21 03/04/23 solution for nebulization albuterol sulfate 90 mcg/actuation 2 puff inhalation Q6H PRN 09/18/21 03/04/23 aerosol inhaler (ProAir HFA) budesonide-formoterol HFA 80 2 puff inhalation BID 09/18/21 03/04/23 mcg-4.5 mcg/actuation aerosol inhaler (Symbicort) calcium phosphate-vitamin D3 250 tab PO 09/18/21 03/04/23 mg calcium-250 unit chewable tablet ipratropium 0.5 mg-albuterol 3 mg 3 ml inhalation QID PRN 09/18/21 03/04/23 (2.5 mg base)/3 mL nebulization soln prednisone 5 mg tablet 5 mg PO DAILY 09/18/21 03/04/23 Oxygen Home Use 08/04/22 03/04/23 nebulizers 08/04/22 03/04/23 Previous Rx's ?Medication ?Instructions ?Recorded levalbuterol HCl 1.25 mg/3 mL 1.25 mg (3 mL) inhalation BID 30 08/04/22 solution for nebulization days #180 mL acetaminophen 500 mg tablet 500 mg PO Q6H PRN pain #30 tabs 03/10/23 (Tylenol Extra Strength) tiotropium bromide 2.5 2 puff inhalation DAILY 90 days #3 04/02/24 mcg/actuation mist for inhalation ea (Spiriva Respimat) Allergies Allergy/AdvReac Type Severity Reaction Status Date / Time azithromycin [From ZITHROMAX] Allergy Unknown UNKNOWN Verified 05/23/24 11:35 Penicillins [PCN] Allergy Unknown UNKNOWN Verified 05/23/24 11:35 Review of Systems Review of Systems: Yes all other systems are reviewed and are negative Constitutional: Constitutional: Reports as per [facility] Past Medical History Attestation statement: The following information was validated with the patient. Source: old records reviewed Medical History Chest pain On home O2 History of COVID-19 (~2021) Osteoporosis Personal history of nicotine dependence Chronic respiratory failure COPD (chronic obstructive pulmonary disease) Surgical History History of hysteroscopy History of colonoscopy Family History Family History Brother Myocardial infarction Social History Social History Patient Tobacco Use Status: Former Tobacco user Years Smoked: (onset 18yo, 1ppd x 43yrs, 40pyh - quit 10/2021) Advance Directives: No Advance Directives Information Provided: Yes Physical Exam ED Vital Signs: Vital Signs - 24 hr 05/23/24 11:33 05/23/24 15:14 05/23/24 15:25 Temperature 98.1 F 97.9 F Pulse Rate 118 H 87 Respiratory Rate 22 H 17 Blood Pressure 176/105 H 162/94 H Pulse Oximetry 98 100 100 Oxygen Delivery Method Nasal Cannula Room Air Nasal Cannula Oxygen Flow Rate 2 05/23/24 17:40 Temperature 98.6 F Pulse Rate 84 Respiratory Rate 18 Blood Pressure 134/88 Pulse Oximetry 100 Oxygen Delivery Method Nasal Cannula Oxygen Flow Rate 2 BMI result Body Mass Index 25.9 Const General: cooperative, healthy appearing and no acute distress Orientation/consciousness: patient oriented x3 Limitations: no limitations HENMT Head: Yes normal to inspection and Yes atraumatic Ears: hearing grossly normal bilaterally General nose exam: Normal external nose present Face and sinus: Yes normal facial exam Eyes General: appearance normal, both eyes and all related structures EOM: EOMs intact bilaterally Neck Neck: Yes normal visual inspection and Yes no meningeal signs Resp Effort & Inspection: normal respiratory effort and no respiratory distress Auscultation: clear to auscultation bilaterally, no crackles, no rales, no rhonchi and no wheezes Cardio Rate: tachycardic Heart sounds: S1 normal heart sound present and S2 normal heart sound present GI Inspection: Yes normal to inspection Palpation (GI): Soft to palpation, nontender, no guarding and not rigid Skin Rashes: no rashes Wounds: no wounds Neuro General: patient oriented x3, tone normal and no meningeal signs Cranial nerves: Yes CN's II-XII intact bilaterally Gait exam (Neuro): Normal gait present Extrem General: Yes normal to inspection, Yes no pedal edema and Yes no calf tenderness Course Course Course Narrative: This is a rapid medical exam performed by Rebeka Daly PA-C. Patient is a 64-year-old female with a history of COPD who is on supplemental oxygen, who presents with progressive dyspnea on exertion with chest pain over the past several months. Her symptoms have been intermittent, but she is noticing worsening symptoms with her baseline activities. She states she has had some minimal new pedal edema, no unintentional weight gain. On exam she is at her baseline oxygen requirement, she is newly hypertensive. No objective pedal edema, her lungs are clear no crackles no wheezing. We will be screening basic labs cardiac enzyme BNP x-ray EKG. She can return to the waiting room pending her full medical assessment. -1507--no leukocytosis. H&H at patient's baseline. Labs otherwise reassuring -troponin x2 negative, mi unlikely XR chest 1V IMPRESSION: No acute airspace disease. -1515--viral testing negative -vital signs normalized Results discussed with patient including worrisome signs and symptoms and strict return precautions, and when to return to the emergency department. They verbalized understanding and feel safe for discharge at this time. Medical Decision Making Medical Decision Making MDM Narrative: 64-year-old female with a past medical history COPD on 2 L NC PRN, osteoporosis, presenting to the ED sent in from pulmonology office for hypertension and intermittent chest pain radiating down LUE x few weeks when she arrived at her office appointment. Also reports exertional dyspnea. On exam initially hypertensive, tachycardic, tachypneic, NAD, nontoxic appearing, lungs CTA, no appreciable wheezing, no pedal edema or calf tenderness. Concern for atypical ACS vs COPD vs hypertension - rule out hypertensive urgency. Low suspicion for hypertensive emergency. Unlikely PE/DVT or dissection. Unlikely ICH. Rule out pneumonia/viral illness Plan: EKG, labs, CXR, viral testing, ED bronch protocol Please refer to course for remaining clinical decision making, interpretation of labs/imaging results, and discussions with consultants and/or family members. Differential Diagnosis Differential Diagnoses: The differential diagnosis associated with the presentation includes As above Admission/Observation Consideration of admission/observation: Escalation of care including admission/observation considered Lab Data MDM Lab Attestation statement: I reviewed the patient's lab results. 05/23/24 12:30 05/23/24 12:30 Labs: Lab Results 05/23/24 05/23/24 Range/Units 12:30 14:16 WBC 9.2 (4.8-10.8) X10*3/uL RBC 5.59 H (4.20-5.50) X10*6/uL Hgb 15.1 (12.0-16.0) g/dl Hct 47.7 H (37.0-47.0) % MCV 85.3 (80.0-98.0) fL MCH 27.0 (27.0-33.0) pg MCHC 31.7 (31.0-35.0) g/dl RDW 14.1 (11.0-16.0) % Plt Count 298 (160-400) X10*3/uL MPV 10.5 (9.4-12.3) fL Immature Gran % (Auto) 0.3 (0.0-0.4) % Neut % (Auto) 80.7 H (45-73) % Lymph % (Auto) 11.1 L (20-40) % Alfalfa % (Auto) 6.0 (2-11) % Eos % (Auto) 1.4 (0-4) % Baso % (Auto) 0.5 (0-2) % Lymph # (Auto) 1.0 L (1.2-4.9) X10*3/uL Alfalfa # (Auto) 0.6 (0.1-1.2) X10*3/uL Eos # (Auto) 0.1 (0.0-0.4) X10*3/uL Baso # (Auto) 0.1 (0.0-0.2) X10*3/uL Abs Immat Gran (auto) 0.03 (0.00-0.03) X10*3/uL Absolute Neuts (auto) 7.5 (2.0-8.3) x10*3/uL Absolute Nucleated RBC 0.000 (0.0-0.012) X10*3/uL Nucleated RBC % (auto) 0.0 (0.0-0.2) /100WBC Sodium 142 (135-145) mmol/L Potassium 4.5 (3.3-5.1) mmol/L Chloride 108 (96-108) mmol/L Carbon Dioxide 28 (22-29) mmol/L Anion Gap 11 L (12-20) BUN 12 (9-16) mg/dL Creatinine 0.67 (0.5-1.4) mg/dL Estim Creat Clear Calc 67.5 Estimated GFR > 60 Random Glucose 97 (60-115) mg/dL Calcium 9.8 (8.4-10.2) mg/dL Magnesium 2.2 (1.6-2.6) mg/dL Total Bilirubin 0.4 (0.0-1.0) mg/dL AST 18 (5-31) U/L ALT 14 (0-31) U/L Alkaline Phosphatase 57 (39-117) U/L Troponin I High Sens 3.3 < 2.7 (<3.5-17.0) ng/L B-Natriuretic Peptide < 10 (<100) pg/mL Total Protein 7.3 (6.5-8.0) g/dL Albumin 4.1 (3.5-5.0) g/dL Influenza Type A (PCR) NEGATIVE (Negative) Influenza Type B (PCR) NEGATIVE (Negative) RSV RNA Qual (PCR) NEGATIVE (Negative) SARS-CoV-2 RNA (RT-PCR) NEGATIVE (Negative) Independent Interpretation I performed an independent interpretation of an: EKG (My interpretation EKG sinus tachycardia rate of 106. DC interval 134. No previous EKGs to compare. No STEMI ) and Plain X-Ray Radiology Impression Discussion of test interpretation with radiology: I have reviewed the radiologist's reading. External Record Review External record reviewed: Inpatient record, Office record, Outpatient record, Prior outpatient labs, Prior outpatient radiology, Primary care record and Outside ED record Tests considered The following testing was considered but not selected: As above Prescription Management I considered prescription management with: Other Chronic Conditions Patient?s care impacted by: Other Social Determinants Patient?s care significantly limited by Social Determinants of Health including: Other Social Determinant of Health Discharge Plan Discharge Clinical Impression: Intermittent chest pain, Exertional dyspnea Patient Disposition: Home, Self-Care Instructions: Dyspnea (ED), Noncardiac Chest Pain (ED) Additional Instructions: Your blood work, chest x-ray, and viral testing is reassuring You need to have close follow-up with cardiology as well as pulmonology If her symptoms persist or worsen you have constant or worsening chest pain, shortness breath, fever, swelling in her legs return to the ED Prescriptions: No Action acetaminophen [Tylenol Extra Strength] 500 mg tablet 500 mg PO Q6H PRN (Reason: pain) Qty: 30 0RF (DME) Oxygen Home Use Kit See Rx Instructions .Route Rx Instructions: As directed (DME) nebulizers [facility]ructions .Route Rx Instructions: As directed levalbuterol HCl 1.25 mg/3 mL solution for nebulization 1.25 mg inhalation BID 30 Days Qty: 180 0RF prednisone 5 mg tablet 5 mg PO DAILY budesonide-formoterol [Symbicort] 80-4.5 mcg/actuation HFA aerosol inhaler 2 puff inhalation BID albuterol sulfate [ProAir HFA] 90 mcg/actuation HFA aerosol inhaler 2 puff inhalation Q6H PRN ipratropium-albuterol 0.5 mg-3 mg(2.5 mg base)/3 mL solution for nebulization 3 ml inhalation QID PRN albuterol sulfate 0.63 mg/3 mL solution for nebulization 0.63 mg inhalation Q4-6H PRN calcium phosphate-vitamin D3 250 mg calcium- 250 unit tablet,chewable PO Spiriva Respimat 2.5 mcg/actuation mist 2 puff inhalation DAILY 90 Days Qty: 3 3RF Referrals: [facility] [Provider Group] [facility] [Provider Group] Bhargav Franklin MD [Primary Care Provider] - 3 days Interventions: ED Discharge Assessment Last Done: 05/23/24 17:40 Discharge Date/Time: 05/23/24 17:41 Print Language: Eritrean
[2024-05-23 12:45] LABS: MANUAL DIFF FLAG NO
[2024-05-23 12:47] LABS: Basophils Absolute Auto 0.1 X10*3/uL (0.0-0.2); Basophils Percent Auto 0.5 % (0-2); Eosinophils Absolute Auto 0.1 X10*3/uL (0.0-0.4); Eosinophils Percent Auto 1.4 % (0-4); Hematocrit 47.7 % (37.0-47.0); Hemoglobin 15.1 g/dl (12.0-16.0); Imm Gran Abs Auto 0.03 X10*3/uL (0.00-0.03); Imm Gran Pct Auto 0.3 % (0.0-0.4); Lymphocytes Percent Auto 11.1 % (20-40); Mean Corpuscular HGB Conc 31.7 g/dl (31.0-35.0); Mean Corpuscular Volume 85.3 fL (80.0-98.0); Mean Platelet Volume 10.5 fL (9.4-12.3); Monocytes Absolute Auto 0.6 X10*3/uL (0.1-1.2); Neutrophils Absolute Auto 7.5 x10*3/uL (2.0-8.3); Neutrophils Percent Auto 80.7 % (45-73); Platelet Count 298 X10*3/uL (160-400); Red Blood Count 5.59 X10*6/uL (4.20-5.50); Red Cell Distribution Width 14.1 % (11.0-16.0); White Blood Count 9.2 X10*3/uL (4.8-10.8)
[2024-05-23 13:00] LABS: Alanine Aminotransferase 14 U/L (0-31); Albumin Level 4.1 g/dL (3.5-5.0); Alkaline Phosphatase 57 U/L (39-117); Anion Gap 11 (12-20); Aspartate Amino Transferase 18 U/L (5-31); Bilirubin Total 0.4 mg/dL (0.0-1.0); Blood Urea Nitrogen 12 mg/dL (9-16); Calcium 9.8 mg/dL (8.4-10.2); Carbon Dioxide 28 mmol/L (22-29); Chloride 108 mmol/L (96-108); Creatinine Clr Calc Pharmacy 67.5; Estimated Glomerular Filt Rate > 60; Glucose Random 97 mg/dL (60-115); Magnesium 2.2 mg/dL (1.6-2.6); Potassium 4.5 mmol/L (3.3-5.1); Sodium 142 mmol/L (135-145); Total Protein 7.3 g/dL (6.5-8.0)
[2024-05-23 13:05] LABS: Troponin-I High Sensitivity 3.3 ng/L (<3.5-17.0)
[2024-05-23 13:06] LABS: B Type Natriuretic Peptide < 10 pg/mL (<100)
[2024-05-23 14:53] LABS: Troponin-I High Sensitivity < 2.7 ng/L (<3.5-17.0)
[2024-05-23 15:11] LABS: Influenza A PCR NEGATIVE (Negative); Influenza B PCR NEGATIVE (Negative); Resp Syncy Virus RNA Qual PCR NEGATIVE (Negative); SARS COV2 PCR INHOUSE NEGATIVE (Negative)
[2024-05-23 15:14] VITALS: BP 162/94; PULSE 87; RESP 17; TEMP 36.6; O2SAT 100
[2024-05-23 15:25] VITALS: O2SAT 100
[2024-05-23 17:40] VITALS: BP 134/88; PULSE 84; RESP 18; TEMP 37; O2SAT 100
== END 2024-05-23 17:41 | disposition home or self-care (01) ==
PROVIDERS: Physician Assistant; Physician Assistant Medical; Emergency Provider Emergency Medicine Emergency Medical Services; PCP Internal Medicine
DX: R07.9 Chest pain, unspecified (principal); R06.00 Dyspnea, unspecified; R06.02 Shortness of breath; R05.9 Cough, unspecified; Z79.899 Other long term (current) drug therapy; J44.9 Chronic obstructive pulmonary disease, unspecified; Z99.81 Dependence on supplemental oxygen; Z03.818 Encounter for observation for suspected exposure to other biological agents ruled out
CPT/HCPCS: 0241U; 36415; 71045; 80053; 83735; 83880; 84484; 85025; 93005; 99212; 99283

== ENCOUNTER → 2024-05-23 11:33 | Outpatient (BNV) | payer MEDICAID, SELFPAY | PROVIDERS: PCP Internal Medicine; Visit Provider Radiology Diagnostic Radiology | DX: R07.9 Chest pain, unspecified (principal) | CPT/HCPCS: 71045 ==

== ENCOUNTER → 2024-06-13 10:47 | Outpatient (REF) | payer MEDICARE, SELFPAY ==
--- NOTE | 2024-06-13 10:50 | CA_ITS ---
Transthoracic Echocardiogram Patient (Last, First, Middle): Jenny Dumont Anne Gender: Female Date of : 1960 Age: 64 Procedure Date: 06/13/2024 Procedure Type: Transthoracic Echocardiogram Location: OP Height: 149.86 cm Weight: 61.24 kg BSA: 1.56 m2 Heart Rate: bpm BP: 132 / 80 mmHg Health Benefits Specialist: ELSA Referring MD: Bhargav Franklin MD Import Export Manager: Gulshan Harris MD Symptoms: SOB TACHYCARDIA Study Quality: Adequate ECG Rhythm: Sinus Conclusions: - 1. Normal LV ejection fraction 55-60% with grade 1 diastolic dysfunction 2. Normal cardiac valvular Dopplers 3. Normal RV systolic pressure 4. No gross pericardial effusion Findings Left Ventricle Normal left ventricular size, thickness, and systolic function. The visually estimated ejection fraction is between 55-60%. Spectral Doppler is indicative of an impaired relaxation filling pattern. E/E prime ratio is <8, consistent with normal filling pressures. Evidence suggests grade I (mild) diastolic dysfunction. Right Ventricle Normal right ventricular cavity size and systolic function. Atria The left atrium is normal in size. The atrial septum has a dumbell appearance. There is no evidence of interatrial shunt. The right atrium is normal in size. Aortic Valve Normal aortic valve structure and function. There is no aortic valve stenosis. There is no aortic valve regurgitation. Mitral Valve Normal mitral valve structure and function. There is trace mitral valve regurgitation. There is no mitral valve stenosis. Pulmonic Valve The pulmonic valve is likely normal. Tricuspid Valve Likely normal tricuspid valve structure and function. There is trace tricuspid valve regurgitation. The right ventricular systolic pressure is normal. The right ventricular systolic pressure is 13 mmHg. Normal right atrial pressure. There is no evidence of pulmonary hypertension. Great Vessels All visible segments of the aorta are normal in size. The pulmonary artery was not well visualized. There is no dilatation of the ascending aorta measuring 2.80 cm. Venous The inferior vena cava is normal in size and collapses greater than 50% with inspiration. Pericardium/Pleural There is no evidence of pericardial effusion. Prior Study Comparison Changes noted compared to prior study dated: 03/09/2022. LV systolic function has marginally improved Measurements 2D Linear Measurements IVSd: 1.01 0.6-0.9/0.6-1.0 cm LVIDd: 3.62 3.9-5.3/4.2-5.9 cm LVIDd Index: 2.32 2.4-3.2/2.2-3.1 cm/m2 LVIDs: 2.55 2.0-3.6 cm LVPWd: 1.05 0.7-1.1 cm Ao Root: 2.50 2.1-3.5 cm LA Diam: 2.60 2.7-3.8/3.0-4.0 cm LAIDs Index: 1.67 1.5-2.3 cm/m2 LV Mass: 141.25 67-162/88-224 g LV Mass Index: 90.54 43-95/49-115 g/m2 LVOT Diam: 2.00 3.0+(-)1.3 cm 2D Systolic Function EF 4C: 59.90 >55% EF 2C: 60.70 >55% EF BiP: 58.90 >55% Mitral Valve MV Pk E: 0.49 MV PK A: 0.78 MV Decel Time: 115.00 E/A: 0.60 E'Lateral: 4.68 E'Medial: 5.77 E/E' Med: 8.50 E/E' Lat: 10.50 PHT: 34.00 MVA PHT: 6.47 Decel [place]: 4.28 Aortic Valve AoV Pk Waldemar: 1.43 AoV Mn Waldemar: 0.95 AoV VTI: 0.29 AoV Pk Grad: 8.00 Aov Mn Grad: 4.00 BASSAM Cont.VTI: 1.98 LVOT LVOT Pk Waldemar: 0.87 LVOT Mn [place]dem[place]: 0.56 LVOT VTI: 0.18 LVOT Pk Grad: 3.00 LVOT Mn Grad: 2.00 LVOT Diam: 2.00 LVOT Area: 3.14 Diastolic Function MV Pk E: 0.49 MV Pk A: 0.78 E/A: 0.60 E'Medial: 5.77 E/E' Med: 8.50 E' Laterial: 4.68 E/E' Lat: 10.50 Right Ventricle TAPSE (mm): 21.00 Tricuspid Valve TR Pk Waldemar: 1.60 TR Pk Grad: 10.00 RA Press: 3.00 RVSP: 13.00 Great Vessels Aorta Ao Root-2D: 2.50 2.0-3.7 cm Ao Asc: 2.80 2.1-3.4 cm Pulmonary Valve PV Pk Waldemar: 0.97 Peak PV Grad: 4.00 Updated in Other Vendor System with Status of Final Gulshan Harris MD electronically signed on 06/13/2024 12:35:24 PM with status of Final
== END ==
LOC: HO.CARD 10:47
PROVIDERS: PCP Internal Medicine; Visit Provider Internal Medicine
DX: R06.02 Shortness of breath (principal); R00.0 Tachycardia, unspecified
CPT/HCPCS: 93306

== ENCOUNTER → 2024-06-13 10:50 | Outpatient (BNV) | payer MEDICARE, SELFPAY | PROVIDERS: PCP Internal Medicine; Visit Provider Internal Medicine Cardiovascular Disease | DX: I34.0 Nonrheumatic mitral (valve) insufficiency (principal); I36.1 Nonrheumatic tricuspid (valve) insufficiency | CPT/HCPCS: 93306 ==

== ENCOUNTER 2024-06-22 13:17 | Outpatient (AMB) | payer MEDICARE, SELFPAY ==
[2024-06-22 13:29] VITALS: BP 130/94; PULSE 83; BMI 27.9
--- NOTE | 2024-06-22 13:29 | MHC.OFFVIS ---
Vital Signs 06/22/24 13:29 Height 4 ft 11 in Weight 138 lb 0.15 oz BMI 27.9 BP 130/94 H Blood Pressure Location Lt brachial Position Sitting Pulse 83 Pulse Source Monitor Intake Visit Reasons: 2y follow up Room Service Attendant Required: No Accompanied by: Self / Same As Patient Allergies azithromycin [From ZITHROMAX] Allergy (Unknown, Verified 05/23/24 11:35) UNKNOWN Penicillins [PCN] Allergy (Unknown, Verified 05/23/24 11:35) UNKNOWN Medication List - Last Reconciled 06/22/24 by Caden Atkins MD acetaminophen (Tylenol Extra Strength) 500 mg PO Q6H PRN albuterol sulfate 90 mcg/actuation (ProAir HFA) 2 puffs inhalation Q6H PRN albuterol sulfate 0.63 mg inhalation Q4-6H PRN budesonide-formoterol 80-4.5 mcg/actuation (Symbicort) 2 puffs inhalation BID calcium phosphate-vitamin D3 250 mg calcium- 250 unit tabs PO ipratropium-albuterol 0.5 mg-3 mg(2.5 mg base)/3 mL 3 mL inhalation QID PRN levalbuterol HCl 1.25 mg (3 mL) inhalation BID 30 days nebulizers As directed Oxygen Home Use As directed prednisone 5 mg PO DAILY tiotropium bromide 2.5 mcg/actuation (Spiriva Respimat) 2 puffs inhalation DAILY 90 days HPI Comments Details: Jenny returns for follow-up. She was last seen about 2 years ago. At that time, she was describing chest tightness/discomfort at different times. With and without exertion. She has a history of COPD and is on home oxygen. She states that she still has the same discomfort and during those times, she also feels some arm numbness and sometimes even vision disturbances. Difficult to say what it is. Somewhat erratic but more so during physical activity. Not clear if it is COPD related or something else. In the past, he had discussed about stress testing but she was very reluctant about any chemicals and was not willing to pursue. [facility] Medical History Chest pain On home O2 History of COVID-19 (~2021) Osteoporosis Personal history of nicotine dependence Chronic respiratory failure COPD (chronic obstructive pulmonary disease) Surgical History History of hysteroscopy History of colonoscopy Family History Brother Myocardial infarction Social History Patient Tobacco Use Status: Former Tobacco user Years Smoked: (onset 18yo, 1ppd x 43yrs, 40pyh - quit 10/2021) Review of Systems Const Denies chills, Denies fatigue, Denies fever(s), Denies frequent falls, Denies weakness, Denies weight gain and Denies weight loss ENT Denies dizziness Card Denies chest pain, Denies leg edema, Denies lightheadedness, Denies palpitations, Denies dyspnea and Denies dyspnea on exertion Resp Denies cough, Denies dyspnea and Denies dyspnea on exertion GI Denies hematochezia Musc Denies abnormal gait, Denies muscle weakness, Denies numbness, Denies radiating pain into limb and Denies tingling Neuro Denies abnormal gait, Denies dizziness, Denies frequent falls, Denies numbness, Denies tingling and Denies weakness Endo Denies fatigue and Denies palpitations Physical Exam Vital Signs: Last Vital Signs Pulse 83 06/22/24 13:29 BP 130/94 H 06/22/24 13:29 BMI result Body Mass Index 27.9 Const General: comfortable and no acute distress Orientation/consciousness: patient oriented x3 HEENT Other: Unremarkable Head: Yes normal to inspection Neck Neck: Yes normal visual inspection Chest Chest palpation & inspection: normal inspection of the chest Resp Auscultation: clear to auscultation bilaterally Cardio Palpation: normal PMI Heart sounds: S1 normal heart sound present, S2 normal heart sound present, no gallops, no murmurs and no rubs GI Palpation (GI): Soft to palpation Back/Spine/Pelvis Other: unremarkable Skin General skin exam: no rashes or lesions noted Neuro General: patient oriented x3 Extrem General: Yes normal to inspection Psych Mental Status: mental status grossly normal Office Procedures EKG Details: EKG with underlying sinus rhythm at 83/Min; right superior axis; no significant ischemic changes; [place] [address]-Cznmjuhgcmkxbzivi, Complete Assessment & Plan Assessment & Plan (1) Chest pain: Code(s): R07.9 - Chest pain, unspecified Category: Medical (2) Primary hypertension: Code(s): I10 - Essential (primary) hypertension Category: Medical (3) COPD (chronic obstructive pulmonary disease): Code(s): J44.9 - Chronic obstructive pulmonary disease, unspecified Category: Medical Qualifiers: COPD type: COPD with acute exacerbation Qualified Code(s): J44.1 - Chronic obstructive pulmonary disease with (acute) exacerbation (4) On home O2: Comment: (on portable O2 since COVID in 04/2021) Code(s): Z99.81 - Dependence on supplemental oxygen Category: Medical Plan Cardiac studies reviewed. Echocardiogram with LVEF of 55-60% and otherwise unremarkable. In the past, LVEF was 51%. Hence seem improved. We discussed about further workup of chest pain with various modalities. She will not be able to exercise on the treadmill because of oxygen-dependent COPD. She is very reluctant to get any form of 'chemicals'. After long discussion, she will willing to consider coronary CTA. Hence we will try that and hopefully she will cooperate. If not, consider dobutamine stress echocardiogram. With regard to hypertension, start amlodipine 2.5 mg daily. She also has a history of sinus tachycardia but that seems improved at this time. We will follow-up after the testing. Orders: Orders CT Cardiac Coronary Angio Today I25.10 - Atherosclerotic heart disease of [place] coronary artery without angina pectoris, R07.9 - Chest pain, unspecified Basic Metabolic Panel Today R07.9 - Chest pain, unspecified Medications: New amlodipine 2.5 mg PO DAILY 90 tabs 1RF Patient Instructions: - Start taking the prescribed blood pressure medication, amlodipine, as directed. - Monitor and note any changes in chest pain or associated symptoms during physical activities. - Avoid strenuous exercise or activities that provoke symptoms. - Follow through with proposed cardiac imaging. - Seek immediate medical care if chest pain worsens or new symptoms arise. Coding Level of Care Code Est Pt Level 4 (51331) Complex EM visit Add On G2211 Diagnoses Chest pain R07.9 Primary hypertension I10 Chronic obstructive pulmonary disease with acute exacerbation J44.1 COPD type: COPD with acute exacerbation On home O2 Z99.81 CPT Codes EKG - CPT: 47361-Mkhulogztssvzvyfi, Complete ([id number])
== END 2024-06-22 14:04 | disposition home or self-care (01) ==
LOC: HO.HCS 13:18
PROVIDERS: PCP Internal Medicine; Visit Provider Internal Medicine
DX: R07.9 Chest pain, unspecified (principal); I10 Essential (primary) hypertension; J44.1 Chronic obstructive pulmonary disease with (acute) exacerbation; Z99.81 Dependence on supplemental oxygen
CPT/HCPCS: 93010; 99214; G2211

== ENCOUNTER → 2024-06-22 13:17 | Outpatient (BNVA) | payer MEDICARE, SELFPAY | PROVIDERS: PCP Internal Medicine; Visit Provider Internal Medicine | DX: J44.1 Chronic obstructive pulmonary disease with (acute) exacerbation (principal); R07.9 Chest pain, unspecified; I10 Essential (primary) hypertension; Z99.81 Dependence on supplemental oxygen | CPT/HCPCS: 93005; 99212 ==

== ENCOUNTER 2024-07-11 15:19 | Outpatient (REF) | payer MEDICARE, SELFPAY ==
--- NOTE | 2024-07-11 15:22 | PFT_ITS ---
Spirometry [] Lung Volumes [] Diffusion Capacity [] Methacholine Challenge [] Flow Volume Loops [] MVV [] MIP/MEP(Max inspiratory pressure/Max expiratory pressure) [] 6 Minute Walk Test [] ABG [] Interpretation [] MTDD
[2024-07-11 16:05] VITALS: PULSE 100; O2SAT 97
== END 2024-07-11 15:20 | disposition home or self-care (01) ==
LOC: HO.RESP 15:19
PROVIDERS: PCP Internal Medicine; Visit Provider Hospitalist
DX: J44.1 Chronic obstructive pulmonary disease with (acute) exacerbation (principal)
CPT/HCPCS: 94010; 94640; 94727; 94729

== ENCOUNTER → 2024-07-11 15:22 | Outpatient (BNV) | payer MEDICARE, SELFPAY | PROVIDERS: PCP Internal Medicine; Visit Provider Internal Medicine Pulmonary Disease | DX: J44.9 Chronic obstructive pulmonary disease, unspecified (principal); J45.50 Severe persistent asthma, uncomplicated | CPT/HCPCS: 94060; 94727; 94729 ==

== ENCOUNTER 2024-09-07 11:25 | Outpatient (REF) | payer MEDICARE, SELFPAY ==
--- OUTSIDE RECORDS SUMMARY | 2024-09-07 12:04 | XMS_ITS | Patient Health Record ---
Author Organization [facility] Address [address] [place] [id number] Care Team Providers Care Car Rental Service Attendant Name Role Phone Bhargav Franklin MD Primary Care Provider Jonathan Hodges [phone] Allergies Allergen (clinical drug ingredient) Drug/Non Drug Allergy documented on EMR Reaction Allergy Type Onset Date Status Penicillin Unknown Drug Allergy Active azithromycin Zithromax Unknown Drug Allergy Acti ve Reason For Referral No Information Medications Medication SIG (Take, Route, Frequency, Duration) Notes Start Date End Date Status ProAir HFA Active Symbicort Active Cephalexin 500 MG Orally Temporary Ac tive Albuterol Sulfate Ac tive Ipratropium [place] 0.02 % Inhalation prn Active predniSONE 10 MG taper Orally daily Temporary Active Social History Tobacco Use: Social History Observation Description Date Details (start date - stop date) Current Smoker NA - NA Tobacco Use/Smoking Question Answer Notes Patient is a current smoker How often do you smoke cigarettes? every day How many cigarettes a day do you smoke? 11-20 How soon after you wake up do you smoke your fir st cigarette? after 60 minutes Are you interested in quitting? Ready to quit Alcohol Screen Question Answer Notes Did you have a drink contain ing alcohol in the past year? Yes How often did you have a dri nk containing alcohol in the past year? Monthly or less (1 point) How many drinks did you have on a typical day when you were drinking in the past year? 1 or 2 drinks (0 point) How often did you have 6 or more drinks on one occasion in the past year? Never (0 point) Points 1 Interpretation Negative Section Notes: Smoker 10-15 cigs; no alcoho l Problems Problem Type SNOMED Code ICD Code Onset Dates Problem Status W/U Status Risk Notes Problem 138272054 Encounter for screening for malignant neoplasm of colon (Z12.11) Active confirmed Problem 21125642 Heme + stool (R19.5) Active confirmed Plan Of Treatment Future Test Test Name Order Date COLONOSCOPY 03/11/2017 Insurance Providers Payer Name Payer Address Payer Phone Subscriber Number Group Number Insured Name Patient Relationship to Insured Coverage Start Date Coverage End Date [facility] [address] [place], [place] [id number] [phone] [id number] JAVIER SUERO Self - patient is the insured Medical (General) History Medical History History ICD Code COPD Asthma Denies [place],DM,CVA,renal disease Surgical History Surgery Date(Month/Year) Fibroid tumor from uterus 2000
== END 2024-09-07 11:26 | disposition home or self-care (01) ==
LOC: HO.MAMMO 11:25
PROVIDERS: PCP Internal Medicine; Visit Provider Internal Medicine
DX: Z13.89 Encounter for screening for other disorder (principal)

== ENCOUNTER 2024-10-03 15:16 | Outpatient (AMB) | payer MEDICARE, SELFPAY ==
--- NOTE | 2024-10-03 15:27 | A.OFFPC_ITS ---
Vital Signs 10/03/24 15:33 Height 5 ft 1.02 in Weight 137 lb BMI 25.9 BP 176/96 H Respiration 18 Pulse 94 Pulse Source Pulse Oximeter Temp 98.0 F Temp Source Temporal Artery Scan Pulse Oximetry (%) 97 Oxygen Delivery Method Nasal Cannula Oxygen Flow Rate 2 Intake Visit Reasons: establish care; COPD - see comments Drop Machine Operator Required: No Accompanied by: Self / Same As Patient Allergies azithromycin (From ZITHROMAX) Allergy (Unknown, Verified 10/06/24 07:54) UNKNOWN Penicillins (PCN) Allergy (Unknown, Verified 10/06/24 07:54) UNKNOWN Medication List - Last Reconciled 10/06/24 by Tyler Marks MD acetaminophen (Tylenol Extra Strength) 500 mg PO Q6H PRN albuterol sulfate 0.63 mg inhalation Q4-6H PRN albuterol sulfate 90 mcg/actuation (ProAir HFA) 2 puffs inhalation Q6H PRN albuterol sulfate 90 mcg/actuation (Ventolin HFA) 2 puffs inhalation QID PRN 30 days amlodipine 2.5 mg PO DAILY budesonide-formoterol 80-4.5 mcg/actuation (Symbicort) 2 puffs inhalation BID calcium phosphate-vitamin D3 250 mg calcium- 250 unit tabs PO ipratropium-albuterol 0.5 mg-3 mg(2.5 mg base)/3 mL 3 mL inhalation QID PRN lorazepam 0.25 - 0.5 mg PO TID PRN nebulizers As directed omeprazole 20 mg PO BID Oxygen Home Use As directed prednisone 5 mg PO DAILY tiotropium bromide 2.5 mcg/actuation (Spiriva Respimat) 2 puffs inhalation DAILY 90 days triamcinolone acetonide 0.1% 1 appl topical BID-TID Tobacco use date assessed: 10/03/24 Dental Screening Dental Screen Date: 10/03/24 Did you have a dental visit in the last 12 months?: Yes Did you have a dental problem in the last 6 months where you did not have access to dental care?: No Was dental information given to patient?: Patient has dentist [facility] Medical History Chest pain On home O2 History of COVID-19 (~2021) Osteoporosis Personal history of nicotine dependence Chronic respiratory failure COPD (chronic obstructive pulmonary disease) Surgical History History of hysteroscopy History of colonoscopy (~05/03/17) Family History Brother Myocardial infarction Social History Housing: House Alcohol intake: current Alcohol intake frequency: does not drink Patient Tobacco Use Status: Former Tobacco user Years Smoked: (onset 18yo, 1ppd x 43yrs, 40pyh - quit 10/2021) service: No Current occupational status: disabled Cognitive needs: No Hearing needs: No Vision needs: Yes (rx glasses) Questionnaire PHQ-9 Over the last 2 weeks, how often have you been bothered by any of the following problems? 1. Little interest or pleasure in doing things: several days 2. Feeling down, depressed, or hopeless: several days 3. Trouble falling or staying asleep, or sleeping too much: several days 4. Feeling tired or having little energy: several days 5. Poor appetite or overeating: not at all 6. Feeling bad about yourself - or that you are a failure or have let yourself or your family down: several days 7. Trouble concentrating on things, such as reading the newspaper or watching television: not at all 8. Moving or speaking so slowly that other people could have noticed. Or the opposite - being so fidgety or restless that you have been moving around a lot more than usual: not at all 9. Thoughts that you would be better off or of hurting yourself in some way: not at all Total score: 5 Source: Developed by Drs. Jonathan Burns, Lizbeth England, Zoran Nunez and colleagues, with an educational sarah from [employer]. Thrive Questionnaire Date Thrive assessed: 10/03/24 I am a: Patient What is your living situation today?: I have a steady place to live Within the past 12 months, did the food you bought not last and you didn't have the money to get more?: Never true Within the past 12 months, did you worry whether your food would run out before you got money to buy more?: Never true Do you have trouble paying for medicines?: No Do you have trouble getting transportation to medical appointments?: No Do you have trouble paying your heating and electricity bill?: No Do you have trouble taking care of your child, family member or friend?: No Do you have trouble with day-to-day activities such as bathing, preparing meals, shopping, managing finances, etc.?: No Are you currently unemployed and looking for a job?: No Are you interested in more education?: No Please select the resources that you would like help with: None THRIVE Score: 0 AUDIT C Alcohol Use Questionnaire (AUDIT-C) 1. How often do you have a drink containing alcohol?: Never 3. How often do you have six or more drinks on one occasion?: Never Total Score: 0 SAIRA-7 AMB Questionnaire SAIRA-7 Date SAIRA - 7 assessed: 10/03/24 Feeling nervous, anxious, or on edge: 1 = Several days Not being able to stop or control worryin = More than half the days Worrying too much about different things: 1 = Several days Trouble relaxin = Several days Being so restless that it is hard to sit still: 0 = Not at all Becoming easily annoyed or irritable: 1 = Several days Feeling afraid as if something awful might happen: 1 = Several days Total SAIRA-7 score (0-4 normal; 5-9 mild; 10-14 moderate; 15-21 severe): 7 Source: Developed by Drs. Jonathan Burns, Lizbeth England, Zoran Nunez and colleagues, with an educational sarah from [employer]. Physical exam (Primary Care) Vital Signs: Last Vital Signs Temp 98.0 F 10/03/24 15:33 Pulse 94 10/03/24 15:33 Resp 18 10/03/24 15:33 BP 176/96 H 10/03/24 15:33 Pulse Ox 97 10/03/24 15:33 Oxygen Delivery Method Nasal Cannula 10/03/24 15:33 Oxygen Flow Rate 2 10/03/24 15:33 BMI result Body Mass Index 25.9 Tobacco/Smoking Status: Tobacco use Status Tobacco use date assessed 10/03/24 10/03/24 15:31 Patient Tobacco Use Status Former Tobacco user 10/03/24 15:41 Tobacco use type 06/22/24 14:00 PHQ-9: PHQ-9 Score PHQ-9: Total score 5 10/03/24 15:44 Thrive Assessment: Date of Thrive Assessment Date Thrive assessed 10/03/24 10/03/24 15:33 Coding Level of Care Code New Pt Level 4 (73282) Complex EM visit Add On G2211 Diagnoses Primary hypertension I10 Chronic obstructive pulmonary disease with acute exacerbation J44.1 COPD type: COPD with acute exacerbation Assessment & Plan Assessment & Plan (1) Primary hypertension: Code(s): I10 - Essential (primary) hypertension Category: Medical Plan: History of Present Illness - The patient is a 64-year-old female presenting with management of hypertension and associated symptoms. - Hypertension: Initially prescribed nifedipine, which caused a significant increase in heart rate, leading to an emergency room visit. - Amlodipine was prescribed by a helper coordinator, but the patient has not started it due to concerns about its similarity to nifedipine. - Blood pressure readings have been consistently high, with recent measurements of 143/90 mmHg and 149/unknown mmHg. - Anxiety and Depression: Reports significant anxiety and panic attacks related to blood pressure, along with feelings of depression. - Episodes of tachycardia occur, with heart rate reaching 170 bpm while at rest, lasting about 30 minutes. - Dry Eye Syndrome: Diagnosed a few months ago, using refresh drops due to insurance not covering prescribed medication. Social History Review of Systems - Cardiovascular: Reports episodes of tachycardia with heart rate reaching 170 bpm. Denies chest pain. - Neurological: Reports numbness at the top of the head. - Ophthalmologic: Reports vision changes and diagnosed with dry eye syndrome. - Psychiatric: Reports anxiety, panic attacks, and depression. Physical Exam General: Cooperative and healthy appearing Nutritional Appearance: Well nourished Orientation/consciousness: Patient oriented x3 Limitations: No limitations Head: Normal to inspection General: Appearance normal, both eyes and all related structures Neck: Normal visual inspection Chest: Normal palpation of entire chest wall Respiratory: N ormal respiratory effort Neurology: Patient oriented x3, reports numbness at the top of the head and vision issues, possibly related to blood pressure. Results Plan 1. Essential Hypertension - Initiate amlodipine 2.5 mg daily as prescribed by the helper coordinator. - Monitor blood pressure daily and follow up in one month to assess response to medication. 2. Anxiety - Discussed the impact of anxiety on blood pressure and overall health. - Consideration for further evaluation and management if symptoms persist. 3. Depression - Acknowledged feelings of depression and sadness, with potential for further evaluation if symptoms persist. 4. Dry Eye Syndrome - Continue using refresh drops due to insurance not covering prescribed medication. Discussion Notes I discussed with the patient the importance of starting amlodipine to manage her hypertension, as prescribed by her helper coordinator, and reassured her about its safety despite her previous experience with nifedipine. We also talked about the role of anxiety in exacerbating her symptoms and the need for potential further evaluation if her anxiety and depression symptoms persist. I advised her to continue using refresh drops for her dry eye syndrome due to insurance limitations on the prescribed medication. Patient Instructions - Start taking amlodipine 2.5 mg daily as prescribed. - Monitor your blood pressure daily and keep a log. - Follow up in one month for reassessment. - Continue using refresh drops for dry eyes. - Seek further evaluation if anxiety or depression symptoms persist. (2) COPD (chronic obstructive pulmonary disease): Code(s): J44.9 - Chronic obstructive pulmonary disease, unspecified Category: Medical Qualifiers: COPD type: COPD with acute exacerbation Qualified Code(s): J44.1 - Chronic obstructive pulmonary disease with (acute) exacerbation Plan: Continue existing meds, Pulmonary consult revd
[2024-10-03 15:33] VITALS: BP 176/96; PULSE 94; RESP 18; TEMP 36.7; O2SAT 97; BMI 25.9
--- OUTSIDE RECORDS SUMMARY | 2024-10-03 15:45 | XMS_ITS | Patient Health Record ---
Author Organization [facility] Address [address] [place] [phone] Care Team Providers Care Private Branch Exchange Installer Name Role Phone Noemi (RETIRED) Bhargav BERUMEN Primary Care Provider Unavailable Jonathan Ireland Unavailable [phone] Allergies Allergen (clinical drug ingredient) Drug/Non Drug [...] Ac tive Albuterol Sulfate Ac tive Ipratropium [place] 0.02 % Inhalation prn Active predniSONE 10 [...] Problem Status W/U Status Risk Notes Problem [id number] Encounter for screening for malignant neoplasm of colon (Z12.11) Active confirmed Problem 05406166 Heme + stool (R19.5) Active confirmed Plan Of Treatment Future Test Test Name Order Date COLONOSCOPY 03/11/2017 Insurance Providers Payer Name Payer Address Payer Phone Subscriber Number Group Number Insured Name Patient Relationship to Insured Coverage Start Date Coverage End Date [facility] [address] [place], [place] [id number] JAVIER SUERO Self - patient is the insured Medical (General) History Medical History History ICD Code COPD Asthma Denies [place],DM,CVA,renal disease Surgical History Surgery Date(Month/Year) Fibroid tumor from uterus 2000
== END 2024-10-03 16:24 | disposition home or self-care (01) ==
LOC: HO.HMCSH 15:16
PROVIDERS: PCP Internal Medicine; Visit Provider Internal Medicine
DX: I10 Essential (primary) hypertension (principal); J44.1 Chronic obstructive pulmonary disease with (acute) exacerbation

== ENCOUNTER → 2024-10-03 15:16 | Outpatient (BNVA) | payer MEDICARE, SELFPAY | PROVIDERS: PCP Internal Medicine; Visit Provider Internal Medicine | DX: Z76.89 Persons encountering health services in other specified circumstances (principal); I10 Essential (primary) hypertension; J44.1 Chronic obstructive pulmonary disease with (acute) exacerbation; Z87.891 Personal history of nicotine dependence | CPT/HCPCS: 99202 ==

== ENCOUNTER 2024-10-20 16:44 | Outpatient (REF) | payer MEDICARE, SELFPAY ==
[2024-10-20 16:57] LABS: MANUAL DIFF FLAG NO
[2024-10-20 17:05] LABS: Ammonia 21 umol/L (13-55)
[2024-10-20 17:32] LABS: Hematocrit 45.1 % (37.0-47.0); Hemoglobin 14.5 g/dl (12.0-16.0); Imm Gran Abs Auto 0.03 X10*3/uL (0.00-0.03); Imm Gran Pct Auto 0.5 % (0.0-0.4); Lymphocytes Absolute Auto 0.8 X10*3/uL (1.2-4.9); Mean Corpuscular HGB Conc 32.2 g/dl (31.0-35.0); Mean Corpuscular Hemoglobin 27.1 pg (27.0-33.0); Mean Corpuscular Volume 84.3 fL (80.0-98.0); NRBC Abs Auto 0.000 X10*3/uL (0.0-0.012); NRBC Pct Auto 0.0 /100WBC (0.0-0.2); Platelet Count 287 X10*3/uL (160-400); Red Blood Count 5.35 X10*6/uL (4.20-5.50); White Blood Count 5.7 X10*3/uL (4.8-10.8)
[2024-10-20 18:18] LABS: Alanine Aminotransferase 13 U/L (0-31); Albumin Level 4.2 g/dL (3.5-5.0); Alkaline Phosphatase 69 U/L (39-117); Anion Gap 13 (12-20); Aspartate Amino Transferase 23 U/L (5-31); Blood Urea Nitrogen 8 mg/dL (9-16); Calcium 9.9 mg/dL (8.4-10.2); Carbon Dioxide 29 mmol/L (22-29); Chloride 104 mmol/L (96-108); Estimated Glomerular Filt Rate > 60; Iron 53 mcg/dL (30-160); Magnesium 2.1 mg/dL (1.6-2.6); Percent Iron Saturation 21 % (15-50); Potassium 3.8 mmol/L (3.3-5.1); Sodium 142 mmol/L (135-145); Total Iron Binding Capacity 249 mcg/dL (228-428); Total Protein 7.3 g/dL (6.5-8.0); Unsaturated Iron Binding 196 ug/dL
[2024-10-20 18:34] LABS: Ferritin 80 ng/mL (10-250)
[2024-10-21 08:46] LABS: HBS Num1 0.45 mIU/mL (0-7.99); HBc Num1 0.20 S/CO (0.00-0.79); HBsAGNum1 0.39 S/CO (0.00-0.99); Hepatitis A Antibody IgM 0.14 Index (0-0.79); Hepatitis B Surface Antigen Negative (Negative); ~HepC Num1 0.11 S/CO (0.00-0.79); ~Hepatitis A Antibody IgM Nonreactive (Nonreactive); ~Hepatitis B Surface Antibody NONREACTIVE (Nonreactive); ~Hepatitis C Antibody Nonreactive (Nonreactive)
== END 2024-10-20 16:45 | disposition home or self-care (01) ==
LOC: HO.LAB 16:44
PROVIDERS: PCP Internal Medicine; Visit Provider Physician Assistant Medical
DX: Z00.00 Encounter for general adult medical examination without abnormal findings (principal); Z11.59 Encounter for screening for other viral diseases; D64.9 Anemia, unspecified; R17 Unspecified jaundice; Z72.89 Other problems related to lifestyle
CPT/HCPCS: 36415; 80053; 82140; 82248; 82728; 83540; 83735; 85025; 86704; 86706; 86709; 86803; 87340

== ENCOUNTER 2024-11-02 09:12 | Outpatient (AMB) | payer MEDICARE, SELFPAY ==
--- OUTSIDE RECORDS SUMMARY | 2024-10-31 02:35 | XMS_ITS | Continuity of Care Document ---
Author Organization [facility] al Address [address] [place] [address]- Care Team Providers Care Superior Court Clerk Name Role Phone Not on Staff, PCP Primary Care Physician Unavail able Encounter [facility] Date(s): 10/30/24 - 10/31/[address] [address]- Discharge Disposition: A-D/C Home Attending Physician: Rudolph Robert DO Admitting Physician: Rudolph Robert DO Referring Physician: Not on Staff, Referring MD Encounter Type: Disch ES Allergies, Adverse Reactions, Alerts Substance Criticality Severity Reaction Reaction Severity Status azithromycin Active penicillin Active shellfish Active Medications Albuterol (Eqv-Proventil HFA) 90 mcg/inh inhalation aerosol 2 puffs, Inhalation, Every 6 hours, 0 Refills, Maintenance, 03/23/21 5:17:00 PM EST, Partial fill upon patient request if the prescription is for a schedule II opioid drug. Start Date: 03/23/21 Status: Ordered Medication Dispense Status: Completed Total Allowed Fills: 1 Fills Dispensed: 0 Albuterol 0.083% / Ipratropium 0.017% Inhalation Solution 4 times a day, Refills 0, Maintenance, 02/04/19 8:23:04 PM EST Start Date: 02/04/19 Status: Ordered Medication Dispense Status: Completed Total Allowed Fills: 1 Fills Dispensed: 0 amLODIPine 2.5 mg oral tablet 2.5 mg, 1, tablet, By Mouth, Daily, Refills 0, Maintenance, 10/26/24 2:54:00 PM EDT, Partial fill upon patient request if the prescription is for a schedule II opioid drug. Start Date: 10/26/24 Status: Ordered Medication Dispense Status: Completed Total Allowed Fills: 1 Fills Dispensed: 0 ibuprofen 600 mg oral tablet 600 mg, 1, tablet, By Mouth, Every 6 hours, PRN, Refills 0, Maintenance, Pain , Moderate, 02/06/19 11:29:24 AM EST Start Date: 02/06/19 Status: Ordered Medication Dispense Status: Completed Total Allowed Fills: 1 Fills Dispensed: 0 Singulair 10 mg oral tablet 10 mg, 1, tablet, By Mouth, Daily in PM, # 30 tablet, Refills 0, Maintenance, 01/03/18 8:11:29 PM EST Start Date: 01/03/18 Status: Ordered Medication Dispense Status: Completed Quantity: 30.0 Unit: tablet Total Allowed Fills: 1 Fills Dispensed: 0 Symbicort 160mcg/4.5mcg Inhaler 2, puffs, Inhalation, 2 times a day, Refills 0, Maintenance, 02/04/19 8:21:59 PM EST Start Date: 02/04/19 Status: Ordered Medication Dispense Status: Completed Total Allowed Fills: 1 Fills Dispensed: 0 Results Radiology Reports * Exam Date Time Procedure Performing Provider Status 10/30/24 9:14 PM Chest 2 Views Frontal and Lat Auth (Verified) Notes: (Chest 2 Views Frontal and Lat) Reason For Exam: Chest Pain;Other: RESULT: Chest 2 Views Frontal and Lat Chest 2 Views Frontal and Lat Hx of Present Illness: Pt states she stopped taking all her medications including her bp medications because she has not been feeling well. Pt report SOB, head numbness x a few months and nonradiating chest pain.; Reason: Other:; Chest Pain; COMPARISON: January 14, 2018. FINDINGS: LINES AND TUBES: None. LUNGS AND PLEURA: Clear lungs. Normal pulmonary vascularity. No evidence of pleural effusion. No pneumothorax. HEART, MEDIASTINUM AND ENMANUEL: Heart is normal in size. Normal mediastinal and hilar contour. BONES AND SOFT TISSUES: No acute abnormality. IMPRESSION: No acute abnormality. WSN: [id number] Ordering Physician: Ru Yeung Dictated By: Jonathan Garibay DO Dictated Date/Time: 10/30/24 9:37 pm Reviewed By: Jonathan Garibay DO Signed By: Jonathan Garibay DO Signed Date/Time: 10/30/24 9:37 pm Transcribed By: ELISHA Transcribed Date/Time: 10/30/24 9:30 pm Vital Signs Most recent to oldest [Reference Range]: 1 2 3 Height 153 cm (10/31/24 2:06 AM) 153 cm (10/31/24 12:07 AM) 153 cm (10/30/24 9:28 PM) Weight 61.1 kg (10/31/24 2:06 AM) 61.1 kg (10/31/24 12:07 AM) 61.1 kg (10/30/24 9:28 PM) Oxygen Saturation [94-100 %] 98 % (10/31/24 2:06 AM) 99 % (10/31/24 12:07 AM) 100 % (10/30/24 9:28 PM) Pulse Rate [55-90 bpm] 104 bpm *H* (10/31/24 2:06 AM) 109 bpm *H* (10/31/24 12:07 AM) 97 bpm *H* (10/30/24 9:28 PM) Body Mass Index [18.5-24.99 kg/m2] 26.1 kg/m2 *H* (10/31/24 2:06 AM) 26.1 kg/m2 *H* (10/31/24 12:07 AM) 26.1 kg/m2 *H* (10/30/24 9:28 PM) Blood Pressure [90-138/55-84 mm Hg] 151/95mm Hg *H* (10/31/24 2:06 AM) 144/91mm Hg *H* (10/31/24 12:07 AM) 151/108mm Hg *H* (10/30/24 9:28 PM) Respiratory Rate [16-30 br/min] 23 br/min (10/31/24 2:06 AM) 19 br/min (10/31/24 12:07 AM) 19 br/min (10/30/24 9:28 PM) Temperature [96.8-100.4 DegF] 98.1 DegF (10/31/24 2:06 AM) 98.4 DegF (10/31/24 12:07 AM) 98.3 DegF (10/30/24 8:37 PM) Liters per Minute 2 L/min (10/31/24 2:06 AM) 2 L/min (10/31/24 12:07 AM) 2 L/min (10/30/24 9:28 PM) Mode of Delivery (Oxygen) Nasal cannula (10/31/24 2:06 AM) Nasal cannula (10/31/24 12:07 AM) Nasal cannula (10/30/24 9:28 PM) Blood pressure sites Arm, left (10/31/24 2:06 AM) Arm, left (10/31/24 12:07 AM) Arm, right (10/30/24 9:28 PM) Temperature Route Oral (10/31/24 2:06 AM) Oral (10/31/24 12:07 AM) Oral (10/30/24 8:37 PM) Dry Weight 61.1 kg (10/31/24 2:06 AM) 61.1 kg (10/31/24 12:07 AM) 61.1 kg (10/30/24 9:28 PM) Weight Obtained Via Standing scale (10/30/24 7:53 PM) Dry Weight Obtained Via Standing scale (10/30/24 7:53 PM) Social History Social History Type Response Smoking Status 10 or more cigarette s (1/2 pack or more)/day in last 30 days entered on: 01/03/18 Sex Sex Representation Female (finding) Status N/A EKG study * Event Display: EKG Authored Date: * Event Display: ECG 12-Lead Authored Date: Please click on pdf link to open report * Event Display: ECG 12-Lead Authored Date: Ventricular Rate: 103 BPM Atrial Rate: 103 BPM P-R Interval: 136 ms QRS Duration: 72 ms Q-T Interval: 334 ms QTC Calculation(Bazett): 437 ms P [place]: 82 degrees R [place]: -67 degrees T [place]: 72 degrees Sinus tachycardia Left axis deviation Pulmonary disease pattern Abnormal ECG When compared with ECG of 26-Oct-2024 16:21, No significant change was found Confirmed by CARLO DRIVER MD ([id number]) on 10/31/2024 8:44:05 PM Berger: CARLO DRIVER MD Patient Care team information Care Team Personnel Name: Not on Staff, PCP Position: S Physician (General Medicine) Member Role: PCP Care Team Related Persons Name: JADIEL SUERO Name: JOSSY SUERO Insurance Providers Guarantor name: FIDE Health Plan Information #: 1 Payer: MEDICARE B Payer Identifier: FIDE Member Number: [id number] Group Number: [id number] Subscriber Identifier: [id number] Relationship to Subscriber: self Coverage Type: NA Coverage Verification Date: NA Telecom: NA Address: NA
[2024-11-02 09:15] VITALS: BP 118/64; PULSE 100
--- NOTE | 2024-11-02 09:15 | MHC.OFFVIS ---
Vital Signs 11/02/24 09:15 Height 5 ft 1 in BP 118/64 Blood Pressure Location Lt brachial Position Sitting Pulse 100 Pulse Source Monitor Intake Visit Reasons: [facility] d/c leg swelling chest pain anxiety Accompanied by: Daughter Allergies azithromycin (From ZITHROMAX) Allergy (Unknown, Verified 11/02/24 09:20) UNKNOWN Penicillins (PCN) Allergy (Unknown, Verified 11/02/24 09:20) UNKNOWN shellfish derived (shellfish) Allergy (Verified 11/02/24 09:20) Unknown Medication List - Last Reconciled 11/02/24 by Karina Bella NP-[place] acetaminophen (Tylenol Extra Strength) 500 mg PO Q6H PRN albuterol sulfate 0.63 mg inhalation Q4-6H PRN albuterol sulfate 90 mcg/actuation (ProAir HFA) 2 puffs inhalation Q6H PRN albuterol sulfate 90 mcg/actuation (Ventolin HFA) 2 puffs inhalation QID PRN 30 days amlodipine 2.5 mg PO DAILY calcium phosphate-vitamin D3 250 mg calcium- 250 unit tabs PO ipratropium-albuterol 0.5 mg-3 mg(2.5 mg base)/3 mL 3 mL inhalation QID PRN nebulizers As directed omeprazole 20 mg PO BID Oxygen Home Use As directed prednisone 5 mg PO DAILY 90 days Symbicort 80-4.5 mcg/actuation (budesonide-formoterol) 2 puffs inhalation BID NS HPI HPI [facility] d/c leg swelling chest pain anxiety: Details: Jenny Santos is a 64-year-old female past medical history of hypertension, smoking, COPD, home O2, anxiety, chest discomfort who presents for cardiology follow-up. Today she reports that she was not able to do the coronary CTA that was ordered last visit as she does not want contrast dye injected. She has a coronary calcium score order in place however has not received a call to schedule this. She does get occasional discomfort in her mid chest in the setting of extreme anxiety. She tells me she has had significant anxiety recently with panic attacks. She says she takes lorazepam at times but ran out. She has been to the ER 3 times this week with variable symptoms including numbness on the top of her head, anxiety, elevated heart rate and chest discomfort. She admits to being mostly sedentary and has been staying in the home. She does wear her oxygen daily. No PND, orthopnea. She has been experiencing some swelling in her right ankle. No chest discomfort brought on by physical activity. No lightheadedness, presyncope, syncope, falls. She has difficulty with ambulation in his sitting in a wheelchair at this visit. She has patches of eczema on her legs trunk and arms. She scratches these areas so they are scabbed and raw. Daughter is present. [facility] Medical History Jaundice Chest pain On home O2 History of COVID-19 (~2021) Osteoporosis Personal history of nicotine dependence Chronic respiratory failure COPD (chronic obstructive pulmonary disease) Surgical History History of hysteroscopy History of colonoscopy (~05/03/17) Family History Brother Myocardial infarction Social History Housing: House Alcohol intake: current Alcohol intake frequency: does not drink Patient Tobacco Use Status: Former Tobacco user Years Smoked: (onset 18yo, 1ppd x 43yrs, 40pyh - quit 10/2021) service: No Current occupational status: disabled Cognitive needs: No Hearing needs: No Vision needs: Yes (rx glasses) Review of Systems Const Details: anxiety and panic attacks All systems reviewed & are unremarkable except as noted in HPI and below Denies daytime sleepiness, Denies difficulty sleeping, Denies snoring, Denies stops breathing during sleep and Denies weakness Card Details: swellng right ankle Reports chest pain, Reports rapid heart rate, Denies irregular heart rhythm, Denies claudication, Denies leg edema, Denies lightheadedness, Reports dyspnea, Denies dyspnea on exertion, Denies orthopnea, Denies paroxysmal nocturnal dyspnea and Denies slow heart rate Resp Denies cough, Reports dyspnea, Denies dyspnea on exertion and Denies snoring GI Reports no additional complaints, Denies hematochezia, Denies change in stool character and Denies dyspepsia Musc Reports abnormal gait, Denies muscle weakness and Denies numbness Neuro Reports abnormal gait, Denies numbness and Denies weakness Physical Exam Vital Signs: Last Vital Signs Pulse 100 11/02/24 09:15 BP 118/64 11/02/24 09:15 Const General: comfortable and no acute distress Orientation/consciousness: patient oriented x3 HEENT Other: Unremarkable Head: Yes normal to inspection Resp Auscultation: clear to auscultation bilaterally Cardio Palpation: normal PMI Heart sounds: S1 normal heart sound present, S2 normal heart sound present, no gallops, no murmurs and no rubs Skin Other: eczema patches on legs and various parts of body Neuro General: patient oriented x3 Extrem Other: mild edema right ankle Psych Mental Status: mental status grossly normal Office Procedures EKG Details: Today, read by me, sinus tachycardia, left axis, no acute ST/ T wave abn, rate 101, Qtc 435ms [id number], Complete Assessment & Plan Assessment & Plan (1) Chest pain: Code(s): R07.9 - Chest pain, unspecified Category: Medical Plan: Reports of chest discomfort in the setting of anxiety. Cardiac risk factors of hypertension, smoking. Recent ER evaluation for this symptom and she says they told her everything was okay. On last visit here nuclear stress test was discussed and she did not want medications injected. A CTA of the coronary arteries was ordered and she declined having contrast dye. She now has a coronary calcium score pending. Will notify data management manager that she has not received word on this yet. Her symptoms do not sound anginal. EKG done today showing sinus tachycardia, rate 101. Signs and symptoms of angina reviewed with her. Further management to be determined following results of coronary calcium score. (2) Sinus tachycardia: Code(s): R00.0 - Tachycardia, unspecified Category: Medical Plan: EKG shows mild sinus tachycardia. Echocardiogram done 06/13/24 showed EF 55-60%, grade 1 diastolic dysfunction. She has issues with high anxiety which likely contributes. (3) Primary hypertension: Code(s): I10 - Essential (primary) hypertension Category: Medical Plan: Blood pressure goal less than 130/80. Blood pressure well controlled at this time. She was recently started on amlodipine 2.5 mg daily for elevated readings. She tells me she has been taking but then stopped it and her blood pressure readings did go high again. When they are high they cause her increased stress and anxiety. Instructed to take amlodipine each day. (4) Anxiety: Code(s): F41.9 - Anxiety disorder, unspecified Category: Medical Plan: She reports high anxiety, concern about her overall health and recent panic attacks. She is out of lorazepam. She does not recall ever trying other medications to control her symptoms. She says that citalopram was ordered and she did not want to take it. Informed her that I will forward this message along to her PCP to see if other treatment options are available to help her with this life altering symptom. (5) Leg edema, right: Code(s): R60.0 - Localized edema Category: Medical Plan: Mild swelling around right ankle. She tells me she did have an ultrasound to check for blood clot and it was negative. She has no calf discomfort. She does have patches of eczema with raw skin but no other evidence indicating cellulitis. Could be related to venous insufficiency, being sedentary. Instructed her to monitor and notify PCP or this office if conditions worsen Plan Time spent on chart review, documentation, interview and assessment Coding Level of Care Code Est Pt Level 4 (50616) Complex EM visit Add On G2211 Diagnoses Chest pain R07.9 Sinus tachycardia R00.0 Primary hypertension I10 Anxiety F41.9 Leg edema, right R60.0 CPT Codes EKG - CPT: [id number], Complete ([id number]) Time Spent (min) 36
--- OUTSIDE RECORDS SUMMARY | 2024-11-02 09:45 | XMS_ITS | Patient Health Record ---
Author Organization [facility] Address [address] [place] [id number] Care Team Providers Care Tugboat Captain Name Role Phone Noemi (RETIRED) Bhargav BERUMEN Primary Care Provider Unavailable Jonathan Ireland Unavailable [phone] Allergies Allergen (clinical drug ingredient) Drug/Non Drug [...] Ac tive Albuterol Sulfate Ac tive Ipratropium [place] 0.02 % Inhalation prn Active predniSONE 10 [...] Problem Status W/U Status Risk Notes Problem [id number] Encounter for screening for malignant neoplasm of colon (Z12.11) Active confirmed Problem [id number] Heme + stool (R19.5) Active confirmed Plan Of Treatment Future Test Test Name Order Date COLONOSCOPY 03/11/2017 Insurance Providers Payer Name Payer Address Payer Phone Subscriber Number Group Number Insured Name Patient Relationship to Insured Coverage Start Date Coverage End Date [facility] [address] [place], [place] [id number] [phone] [id number] JAVIER SUERO Self - patient is the insured Medical (General) History Medical History History ICD Code COPD Asthma Denies DE,DM,CVA,renal disease Surgical History Surgery Date(Month/Year) Fibroid tumor from uterus 2000
== END 2024-11-02 09:57 | disposition home or self-care (01) ==
LOC: HO.HCS 09:13
PROVIDERS: PCP Internal Medicine; Visit Provider Nurse Practitioner Family
DX: R07.9 Chest pain, unspecified (principal); R00.0 Tachycardia, unspecified; I10 Essential (primary) hypertension; F41.9 Anxiety disorder, unspecified; R60.0 Localized edema
CPT/HCPCS: 93010; 99214; G2211

== ENCOUNTER → 2024-11-02 09:12 | Outpatient (BNVA) | payer MEDICARE, SELFPAY | PROVIDERS: PCP Internal Medicine; Visit Provider Nurse Practitioner Family | DX: R07.9 Chest pain, unspecified (principal); R00.0 Tachycardia, unspecified; I10 Essential (primary) hypertension; F41.9 Anxiety disorder, unspecified; R60.0 Localized edema; I51.7 Cardiomegaly; R94.31 Abnormal electrocardiogram [ECG] [EKG] | CPT/HCPCS: 93005; 99212 ==

== ENCOUNTER 2024-11-16 09:56 | Outpatient (AMB) | payer MEDICARE, SELFPAY ==
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
[2024-11-16 10:03] VITALS: BP 124/72; PULSE 112; O2SAT 96; BMI 25.0
--- OUTSIDE RECORDS SUMMARY | 2024-11-16 11:41 | XMS_ITS | Patient Health Record ---
Author Organization [facility] Address [address] [place] [id number] Care Team Providers Care Rhythmic Gymnastics Coach Name Role Phone Noemi (RETIRED) Bhargav BERUMEN Primary Care Provider Unavailable Jonathan Ireland Unavailable [phone] Allergies Allergen (clinical drug ingredient) Drug/Non Drug [...] Ac tive Albuterol Sulfate Ac tive Ipratropium [place] 0.02 % Inhalation prn Active predniSONE 10 [...] Problem Status W/U Status Risk Notes Problem [id number] Encounter for screening for malignant neoplasm of colon (Z12.11) Active confirmed Problem [id number] Heme + stool (R19.5) Active confirmed Plan Of Treatment Future Test Test Name Order Date COLONOSCOPY 03/11/2017 Insurance Providers Payer Name Payer Address Payer Phone Subscriber Number Group Number Insured Name Patient Relationship to Insured Coverage Start Date Coverage End Date [facility] [address] [place], [place] [id number] JAVIER SUERO Self - patient is the insured Medical (General) History Medical History History ICD Code COPD Asthma Denies [place],DM,CVA,renal disease Surgical History Surgery Date(Month/Year) Fibroid tumor from uterus 2000
== END 2024-11-16 10:28 | disposition home or self-care (01) ==
LOC: HO.HPS 09:57
PROVIDERS: PCP Internal Medicine; Visit Provider Hospitalist
DX: J44.1 Chronic obstructive pulmonary disease with (acute) exacerbation (principal); J96.11 Chronic respiratory failure with hypoxia; R07.9 Chest pain, unspecified
CPT/HCPCS: 99214; G2211

== ENCOUNTER 2024-11-16 09:56 | Outpatient (REF) | payer MEDICARE, SELFPAY ==
[2024-11-16 11:18] LABS: Venous Blood Gas Refer to POC result
[2024-11-16 11:30] LABS: VBG HCO3 31 mmol/L (22-26); VBG O2 % Saturation 57.0 %
[2024-11-16 12:51] LABS: Folate 8.5 ng/mL (> or = 4.0); Vitamin B12 451 pg/mL (200-900)
[2024-11-21 12:54] LABS: Vitamin D 25-OH, D2 <4 ng/mL; Vitamin D 25-OH, D3 24 ng/mL; Vitamin D 25-OH, Total 24 ng/mL (30-100)
== END 2024-11-16 09:57 | disposition home or self-care (01) ==
LOC: HO.LAB 09:56
PROVIDERS: PCP Internal Medicine; Visit Provider Hospitalist
DX: J96.11 Chronic respiratory failure with hypoxia (principal); J44.1 Chronic obstructive pulmonary disease with (acute) exacerbation; L30.9 Dermatitis, unspecified; R07.9 Chest pain, unspecified; Z87.891 Personal history of nicotine dependence; Z79.52 Long term (current) use of systemic steroids; Z79.899 Other long term (current) drug therapy
CPT/HCPCS: 36415; 82306; 82607; 82746; 82785; 82803; 99212

== ENCOUNTER 2024-11-17 16:18 | Outpatient (REF) | payer MEDICARE, SELFPAY ==
--- OUTSIDE RECORDS SUMMARY | 2024-11-17 16:21 | XMS_ITS | Patient Health Record ---
Author Organization [facility] Address [address] [place] [id number] Care Team Providers Care Data Officer Name Role Phone Noemi (RETIRED) Bhargav BERUMEN Primary Care Provider Unavailable Jonathan Ireland Unavailable [phone] Allergies Allergen (clinical drug ingredient) Drug/Non Drug [...] Ac tive Albuterol Sulfate Ac tive Ipratropium [place] 0.02 % Inhalation prn Active predniSONE 10 [...] Problem Status W/U Status Risk Notes Problem [id number] Encounter for screening for malignant neoplasm of colon (Z12.11) Active confirmed Problem [id number] Heme + stool (R19.5) Active confirmed Plan Of Treatment Future Test Test Name Order Date COLONOSCOPY 03/11/2017 Insurance Providers Payer Name Payer Address Payer Phone Subscriber Number Group Number Insured Name Patient Relationship to Insured Coverage Start Date Coverage End Date [facility] [address] [place], [place] [id number] [phone] [id number] JAVIER SUERO Self - patient is the insured Medical (General) History Medical History History ICD Code COPD Asthma Denies [place],DM,CVA,renal disease Surgical History Surgery Date(Month/Year) Fibroid tumor from uterus 2000
[2024-11-17 16:40] LABS: MANUAL DIFF FLAG NO
[2024-11-17 16:57] LABS: Hematocrit 44.7 % (37.0-47.0); Hemoglobin 14.6 g/dl (12.0-16.0); Imm Gran Abs Auto 0.02 X10*3/uL (0.00-0.03); Imm Gran Pct Auto 0.3 % (0.0-0.4); Lymphocytes Absolute Auto 1.5 X10*3/uL (1.2-4.9); Mean Corpuscular HGB Conc 32.7 g/dl (31.0-35.0); Mean Corpuscular Hemoglobin 27.2 pg (27.0-33.0); Mean Corpuscular Volume 83.2 fL (80.0-98.0); NRBC Abs Auto 0.000 X10*3/uL (0.0-0.012); NRBC Pct Auto 0.0 /100WBC (0.0-0.2); Platelet Count 284 X10*3/uL (160-400); Red Blood Count 5.37 X10*6/uL (4.20-5.50); White Blood Count 6.4 X10*3/uL (4.8-10.8)
[2024-11-17 17:22] LABS: Anion Gap 10 (12-20); Blood Urea Nitrogen 10 mg/dL (9-16); Calcium 9.7 mg/dL (8.4-10.2); Carbon Dioxide 31 mmol/L (22-29); Chloride 103 mmol/L (96-108); Estimated Glomerular Filt Rate > 60; Potassium 4.3 mmol/L (3.3-5.1); Sodium 140 mmol/L (135-145)
== END 2024-11-17 16:19 | disposition home or self-care (01) ==
LOC: HO.LAB 16:18
PROVIDERS: PCP Internal Medicine; Visit Provider Hospitalist
DX: J44.1 Chronic obstructive pulmonary disease with (acute) exacerbation (principal); R07.9 Chest pain, unspecified
CPT/HCPCS: 36415; 80048; 85025; 85652

== ENCOUNTER 2024-11-21 09:59 | Outpatient (AMB) | payer MEDICARE, SELFPAY ==
[2024-11-21 10:18] VITALS: BP 142/86; PULSE 100; RESP 18; TEMP 36.9; O2SAT 97; BMI 24.9
--- NOTE | 2024-11-21 10:18 | A.OFFPC_ITS ---
Vital Signs 11/21/24 10:18 Height 5 ft 1.02 in Weight 132 lb BMI 24.9 BP 142/86 H Respiration 18 Pulse 100 Pulse Source Pulse Oximeter Temp 98.4 F Temp Source Temporal Artery Scan Pulse Oximetry (%) 97 Oxygen Delivery Method Nasal Cannula Oxygen Flow Rate 1 Intake Visit Reasons: 1 month follow up - see comments Hydraulic Specialist Required: No Accompanied by: Daughter Allergies azithromycin (From ZITHROMAX) Allergy (Unknown, Verified 11/21/24 10:18) UNKNOWN Penicillins (PCN) Allergy (Unknown, Verified 11/21/24 10:18) UNKNOWN shellfish derived (shellfish) Allergy (Verified 11/21/24 10:18) Unknown Tobacco use date assessed: 11/21/24 Dental Screening Dental Screen Date: 10/03/24 [facility] Medical History Jaundice Chest pain On home O2 History of COVID-19 (~2021) Osteoporosis Personal history of nicotine dependence Chronic respiratory failure COPD (chronic obstructive pulmonary disease) Surgical History History of hysteroscopy History of colonoscopy (~05/03/17) Family History Brother Myocardial infarction Social History Housing: House Alcohol intake: current Alcohol intake frequency: does not drink Patient Tobacco Use Status: Former Tobacco user Years Smoked: (onset 18yo, 1ppd x 43yrs, 40pyh - quit 10/2021) service: No Current occupational status: disabled Cognitive needs: No Hearing needs: No Vision needs: Yes (rx glasses) Questionnaire PHQ-9 Over the last 2 weeks, how often have you been bothered by any of the following problems? 1. Little interest or pleasure in doing things: several days 2. Feeling down, depressed, or hopeless: several days 3. Trouble falling or staying asleep, or sleeping too much: several days 4. Feeling tired or having little energy: several days 5. Poor appetite or overeating: not at all 6. Feeling bad about yourself - or that you are a failure or have let yourself or your family down: several days 7. Trouble concentrating on things, such as reading the newspaper or watching television: not at all 8. Moving or speaking so slowly that other people could have noticed. Or the opposite - being so fidgety or restless that you have been moving around a lot more than usual: not at all 9. Thoughts that you would be better off or of hurting yourself in some way: not at all Total score: 5 Source: Developed by Drs. Jonathan Burns, Lizbeth England, Zoran Nunez and colleagues, with an educational sarah from [employer]. Thrive Questionnaire Date Thrive assessed: 10/03/24 I am a: Patient What is your living situation today?: I have a steady place to live Within the past 12 months, did the food you bought not last and you didn't have the money to get more?: Never true Within the past 12 months, did you worry whether your food would run out before you got money to buy more?: Never true Do you have trouble paying for medicines?: No Do you have trouble getting transportation to medical appointments?: No Do you have trouble paying your heating and electricity bill?: No Do you have trouble taking care of your child, family member or friend?: No Do you have trouble with day-to-day activities such as bathing, preparing meals, shopping, managing finances, etc.?: No Are you currently unemployed and looking for a job?: No Are you interested in more education?: No Please select the resources that you would like help with: None THRIVE Score: 0 AUDIT C Alcohol Use Questionnaire (AUDIT-C) 1. How often do you have a drink containing alcohol?: Never 3. How often do you have six or more drinks on one occasion?: Never Total Score: 0 SAIRA-7 AMB Questionnaire SAIRA-7 Date SAIRA - 7 assessed: 10/03/24 Feeling nervous, anxious, or on edge: 1 = Several days Not being able to stop or control worryin = More than half the days Worrying too much about different things: 1 = Several days Trouble relaxin = Several days Being so restless that it is hard to sit still: 0 = Not at all Becoming easily annoyed or irritable: 1 = Several days Feeling afraid as if something awful might happen: 1 = Several days Total SAIRA-7 score (0-4 normal; 5-9 mild; 10-14 moderate; 15-21 severe): 7 Source: Developed by Drs. Jonathan Burns, Lizbeth England, Zoran Nunez and colleagues, with an educational sarah from [employer]. Physical exam (Primary Care) Vital Signs: Last Vital Signs Temp 98.4 F 11/21/24 10:18 Pulse 100 11/21/24 10:18 Resp 18 11/21/24 10:18 BP 142/86 H 11/21/24 10:18 Pulse Ox 97 11/21/24 10:18 Oxygen Delivery Method Nasal Cannula 11/21/24 10:18 Oxygen Flow Rate 1 11/21/24 10:18 BMI result Body Mass Index 24.9 Tobacco/Smoking Status: Tobacco use Status Tobacco use date assessed 11/21/24 11/21/24 10:20 Patient Tobacco Use Status Former Tobacco user 11/21/24 10:20 Tobacco use type 06/22/24 14:00 PHQ-9: PHQ-9 Score PHQ-9: Total score 5 11/21/24 11:14 Thrive Assessment: Date of Thrive Assessment Date Thrive assessed 10/03/24 11/21/24 10:20 Office Procedures Flu Questionnaire Does the patient have a severe egg allergy?: No Does the patient have severe life threatening allergies?: No Does the patient have a fever or illness today?: No Has the patient ever had Guillain-[place] Syndrome?: No Has the patient ever had any past reaction to a flu shot?: No Immunizations Fluarix [id number] (PF) 45 mcg (15 mcg x 3)/0.5 mL IM syringe Performing Provider: Tyler Marks MD Per[facility] [place] [facility] Documented (not given) by: GRETA Stark on 11/21/24 11:15 Reason Not Given: Patient Refused Coding Level of Care Code Est Pt Level 4 (33529) Complex EM visit Add On G2211 Diagnoses Eczema L30.9 Anxiety F41.9 Assessment & Plan Assessment & Plan (1) Eczema: Code(s): L30.9 - Dermatitis, unspecified Plan: A dermatology appointment has been rescheduled for her. Patient has extensive eczema in her hands. (2) Anxiety: Code(s): F41.9 - Anxiety disorder, unspecified Category: Medical Plan: The head numbness symptoms could be coming from anxiety. We will continue to monitor. Plan History of Present Illness - The patient is a 64-year-old female presenting with eczema and lung disease. - Eczema: The patient reports a severe exacerbation of eczema affecting multiple body areas, with ongoing management challenges. - She is tapering off prednisone and has not yet been approved for Dupixent, with limited success from topical treatments. - Lung Disease: The patient is managed by Dr. Suárez, who is tapering her prednisone and considering Dupixent as a treatment option. Social History Review of Systems - Dermatological: Reports severe eczema affecting multiple areas of the body. - Respiratory: Denies receiving a flu shot. Physical Exam General: Cooperative and healthy appearing Nutritional Appearance: Well nourished Orientation/consciousness: Patient oriented x3 Limitations: No limitations Head: Normal to inspection General: Appearance normal, both eyes and all related structures Neck: Normal visual inspection Chest: Normal palpation of entire chest wall Respiratory: Lung disease, patient is tapering down prednisone, considering Dupixent. ormal respiratory effort Neurology: Patient oriented x3 Results - Labs: Blood work on November 16 and showed normal blood count and kidney function, including creatinine levels. Plan - Referral to dermatology for eczema management is necessary, and the patient is advised to provide required information to secure an appointment. - Continue tapering prednisone under Dr. Suárez's guidance, with consideration for Dupixent pending approval. Discussion Notes I discussed the importance of seeing a motorboat mechanic inboard/outboard for eczema management and advised the patient to provide the necessary information to secure an appointment. We also reviewed the current management of her lung disease, including the tapering of prednisone and the potential use of Dupixent. Patient Instructions - Provide necessary information to dermatology to secure an appointment. - Continue following Dr. Suárez's instructions for tapering prednisone. Orders: Orders Influenza [id number] Immunization 11/21/24 Z23 - Encounter for immunization Erythrocyte Sedimentation Rate 11/21/24 F41.9 - Anxiety disorder, unspecified Referrals Dermatology Referral L30.9 - Dermatitis, unspecified
--- OUTSIDE RECORDS SUMMARY | 2024-11-21 12:02 | XMS_ITS | Patient Health Record ---
Author Organization [facility] Address [address] [place] [phone] Care Team Providers Care Audiology Director Name Role Phone Noemi (RETIRED) Bhargav BERUMEN Primary Care Provider Unavailable Jonathan Ireland Unavailable [phone] Allergies Allergen (clinical drug ingredient) Drug/Non Drug [...] Ac tive Albuterol Sulfate Ac tive Ipratropium [place] 0.02 % Inhalation prn Active predniSONE [...] Problem Status W/U Status Risk Notes Problem [id number] Encounter for screening for malignant neoplasm of colon (Z12.11) Active confirmed Problem [id number] Heme + stool (R19.5) Active confirmed Plan Of Treatment Future Test Test Name Order Date COLONOSCOPY 03/11/2017 Insurance Providers Payer Name Payer Address Payer Phone Subscriber Number Group Number Insured Name Patient Relationship to Insured Coverage Start Date Coverage End Date [facility] [address] [place], [place] [id number] JAVIER SUERO Self - patient is the insured Medical (General) History Medical History History ICD Code COPD Asthma Denies [place],DM,CVA,renal disease Surgical History Surgery Date(Month/Year) Fibroid tumor from uterus 2000
== END 2024-11-21 11:38 | disposition home or self-care (01) ==
LOC: HO.HMCSH 09:59
PROVIDERS: PCP Internal Medicine; Visit Provider Internal Medicine
DX: Z23 Encounter for immunization (principal)

== ENCOUNTER → 2024-11-21 09:59 | Outpatient (BNVA) | payer MEDICARE, SELFPAY | PROVIDERS: PCP Internal Medicine; Visit Provider Internal Medicine | DX: L30.9 Dermatitis, unspecified (principal); F41.9 Anxiety disorder, unspecified | CPT/HCPCS: 90471; 99212 ==

== ENCOUNTER 2024-12-11 08:45 | Outpatient (AMB) | payer MEDICARE, SELFPAY ==
[2024-12-11 08:46] VITALS: BP 132/80; PULSE 88; RESP 18; TEMP 36.8; O2SAT 99; BMI 24.2
--- NOTE | 2024-12-11 08:46 | A.OFFPC_ITS ---
Vital Signs 12/11/24 08:46 Height 5 ft 1.02 in Weight 128 lb BMI 24.2 BP 132/80 Respiration 18 Pulse 88 Pulse Source Pulse Oximeter Temp 98.3 F Temp Source Temporal Artery Scan Pulse Oximetry (%) 99 Oxygen Delivery Method Nasal Cannula Oxygen Flow Rate 2 Intake Visit Reasons: Lump Left breast Consulting Project Director Required: No Accompanied by: Daughter Allergies azithromycin (From ZITHROMAX) Allergy (Unknown, Verified 12/11/24 08:46) UNKNOWN Penicillins (PCN) Allergy (Unknown, Verified 12/11/24 08:46) UNKNOWN shellfish derived (shellfish) Allergy (Verified 12/11/24 08:46) Unknown Tobacco use date assessed: 11/21/24 Dental Screening Dental Screen Date: 10/03/24 [facility] Medical History Jaundice Chest pain On home O2 History of COVID-19 (~2021) Osteoporosis Personal history of nicotine dependence Chronic respiratory failure COPD (chronic obstructive pulmonary disease) Surgical History History of hysteroscopy History of colonoscopy (~05/03/17) Family History Brother Myocardial infarction Social History Housing: House Alcohol intake: current Alcohol intake frequency: does not drink Patient Tobacco Use Status: Former Tobacco user Years Smoked: (onset 18yo, 1ppd x 43yrs, 40pyh - quit 10/2021) service: No Current occupational status: disabled Cognitive needs: No Hearing needs: No Vision needs: Yes (rx glasses) Questionnaire PHQ-9 Over the last 2 weeks, how often have you been bothered by any of the following problems? 1. Little interest or pleasure in doing things: several days 2. Feeling down, depressed, or hopeless: several days 3. Trouble falling or staying asleep, or sleeping too much: several days 4. Feeling tired or having little energy: several days 5. Poor appetite or overeating: not at all 6. Feeling bad about yourself - or that you are a failure or have let yourself or your family down: several days 7. Trouble concentrating on things, such as reading the newspaper or watching television: not at all 8. Moving or speaking so slowly that other people could have noticed. Or the op posite - being so fidgety or restless that you have been moving around a lot more than usual: not at all 9. Thoughts that you would be better off or of hurting yourself in some way: not at all Total score: 5 Source: Developed by Drs. Jonathan Burns, Lizbeth England, Zoran Nunez and colleagues, with an educational sarah from [employer]. Thrive Questionnaire Date Thrive assessed: 10/03/24 I am a: Patient What is your living situation today?: I have a steady place to live Within the past 12 months, did the food you bought not last and you didn't have the money to get more?: Never true Within the past 12 months, did you worry whether your food would run out before you got money to buy more?: Never true Do you have trouble paying for medicines?: No Do you have trouble getting transportation to medical appointments?: No Do you have trouble paying your heating and electricity bill?: No Do you have trouble taking care of your child, family member or friend?: No Do you have trouble with day-to-day activities such as bathing, preparing meals, shopping, managing finances, etc.?: No Are you currently unemployed and looking for a job?: No Are you interested in more education?: No Please select the resources that you would like help with: None THRIVE Score: 0 AUDIT C Alcohol Use Questionnaire (AUDIT-C) 1. How often do you have a drink containing alcohol?: Never 3. How often do you have six or more drinks on one occasion?: Never Total Score: 0 SAIRA-7 AMB Questionnaire SAIRA-7 Date SAIRA - 7 assessed: 10/03/24 Feeling nervous, anxious, or on edge: 1 = Several days Not being able to stop or control worryin = More than half the days Worrying too much about different things: 1 = Several days Trouble relaxin = Several days Being so restless that it is hard to sit still: 0 = Not at all Becoming easily annoyed or irritable: 1 = Several days Feeling afraid as if something awful might happen: 1 = Several days Total SAIRA-7 score (0-4 normal; 5-9 mild; 10-14 moderate; 15-21 severe): 7 Source: Developed by Drs. Jonathan Burns, Lizbeth England, Zoran Nunez and colleagues, with an educational sarah from [employer]. Physical exam (Primary Care) Vital Signs: Last Vital Signs Temp 98.3 F 12/11/24 08:46 Pulse 88 12/11/24 08:46 Resp 18 12/11/24 08:46 BP 132/80 12/11/24 08:46 Pulse Ox 99 12/11/24 08:46 Oxygen Delivery Method Nasal Cannula 12/11/24 08:46 Oxygen Flow Rate 2 12/11/24 08:46 BMI result Body Mass Index 24.2 Tobacco/Smoking Status: Tobacco use Status Tobacco use date assessed 11/21/24 12/11/24 08:48 Patient Tobacco Use Status Former Tobacco user 12/11/24 08:48 Tobacco use type 06/22/24 14:00 PHQ-9: PHQ-9 Score PHQ-9: Total score 5 12/11/24 09:10 Thrive Assessment: Date of Thrive Assessment Date Thrive assessed 10/03/24 12/11/24 08:48 Coding Level of Care Code Est Pt Level 4 (13708) Complex EM visit Add On G2211 Diagnoses Breast lump N63.0 Assessment & Plan Assessment & Plan (1) Breast lump: Code(s): N63.0 - Unspecified lump in unspecified breast Plan: Diagnostic Mammogram with left breast ultrasound ordered. Clinically not suspicious. Plan History of Present Illness - The patient is a 64-year-old female presenting with a lump in the left breast. - The patient noticed the lump approximately one month ago and attempted to have a mammogram at [place], but was advised to consult her physician first. - There is no mention of associated symptoms or changes in the lump's characteristics. Social History Review of Systems Physical Exam General: Cooperative and healthy appearing Nutritional Appearance: Well nourished Orientation/consciousness: Patient oriented x3 Limitations: No limitations Head: Normal to inspection General: Appearance normal, both eyes and all related structures Neck: Normal visual inspection Chest: Normal palpation of entire chest wall Respiratory: Normal respiratory effort Neurology: Patient oriented x3 Breast: Examined with MA in the room. Left breast: No nipple discharge. No lymphnodes palpable. Results Plan Discussion Notes Patient Instructions Orders: Orders MM diagnostic mammo BI Today N63.0 - Unspecified lump in unspecified breast US breast LT complete Today N63.0 - Unspecified lump in unspecified breast
== END 2024-12-11 09:11 | disposition home or self-care (01) ==
LOC: HO.HMCSH 08:45
PROVIDERS: PCP Internal Medicine; Visit Provider Internal Medicine
DX: N63.0 Unspecified lump in unspecified breast (principal)

== ENCOUNTER → 2024-12-11 08:45 | Outpatient (BNVA) | payer MEDICARE, SELFPAY | PROVIDERS: PCP Internal Medicine; Visit Provider Internal Medicine | DX: N63.20 Unspecified lump in the left breast, unspecified quadrant (principal) | CPT/HCPCS: 96127; 99212 ==

== ENCOUNTER 2025-01-02 11:39 | Outpatient (AMB) | payer MEDICARE, SELFPAY ==
--- NOTE | 2025-01-02 11:40 | A.OFFVIS_ITS ---
Intake Visit Reasons: B/L arm pain and head numbness Allergies azithromycin (From ZITHROMAX) Allergy (Unknown, Verified 12/11/24 08:46) UNKNOWN Penicillins (PCN) Allergy (Unknown, Verified 12/11/24 08:46) UNKNOWN shellfish derived (shellfish) Allergy (Verified 12/11/24 08:46) Unknown Medication List - Last Reconciled 01/02/25 by Simran Srivastava MD acetaminophen (Tylenol Extra Strength) 500 mg PO Q6H PRN albuterol sulfate 0.63 mg inhalation Q4-6H PRN albuterol sulfate 90 mcg/actuation (ProAir HFA) 2 puffs inhalation Q6H PRN calcium phosphate-vitamin D3 250 mg calcium- 250 unit tabs PO cholecalciferol (vitamin D3) 50 mcg PO DAILY 30 days dupilumab (Dupixent) 300 mg (2 mL) subcut Q2W 4 weeks ipratropium-albuterol 0.5 mg-3 mg(2.5 mg base)/3 mL 3 mL inhalation QID PRN lorazepam 0.5 mg PO TID PRN nebulizers As directed omeprazole 20 mg PO BID Oxygen Home Use As directed Symbicort 80-4.5 mcg/actuation (budesonide-formoterol) 2 puffs inhalation BID NS triamcinolone acetonide 0.025% 1 appl topical BID HPI Comments Details: This is a 65-year-old right-handed woman with a history of severe COPD and anxiety disorder who comes in for evaluation of a sensation of tightness, pressure and numbness over the top of the head in the area of the vertex bilaterally, which is constantly present since June 2024. She gets transient numbness and paresthesia for a few minutes on the tip of her nose and the left cheek also. She has had no trauma. No serious headaches, no neck pr oblems. She was seen in the emergency room at [facility] and had a negative CT scan of the brain. She gets some blurring in the eyes that is attributed to dry eyes and uses Refresh drops. She has an elevated level of anxiety and poor sleep patterns with difficulty falling asleep and staying asleep for about 3 months. She gets effectively about 4 hours of sleep at night. She has been prescribed lorazepam but has been afraid to take it because of her COPD. She is concerned that she has MS and is very anxious about it [facility] Medical History Jaundice Chest pain On home O2 History of COVID-19 (~2021) Osteoporosis Personal history of nicotine dependence Chronic respiratory failure COPD (chronic obstructive pulmonary disease) Surgical History History of hysteroscopy History of colonoscopy (~05/03/17) Family History Brother Myocardial infarction Social History Housing: House Alcohol intake: current Alcohol intake frequency: does not drink Patient Tobacco Use Status: Former Tobacco user Years Smoked: (onset 18yo, 1ppd x 43yrs, 40pyh - quit 10/2021) service: No Current occupational status: disabled Cognitive needs: No Hearing needs: No Vision needs: Yes (rx glasses) Review of Systems Const Reports fatigue, Reports weight gain and Reports weight loss Eyes Reports blurry vision Card Reports palpitations and Reports dyspnea Resp Reports dyspnea and Reports wheezing Details: urinary frequency Musc Reports numbness Neuro Reports numbness and Reports paresthesias Psych Reports anxiety Endo Reports fatigue and Reports palpitations Aller/Immun Reports wheezing Physical Exam Neuro Other: ?Mini Mental Status Exam Level of Consciousness:?Alert.? Orientation:?Knows correct year, month, date, day and season.?Knows correct city, county and state. Knows correct location and floor.? Registration:?Able to register 3 objects.? Attention:?Serial 7's performed accurately.? Recall:?Able to recall 3 out of 3 objects.? Language:?Normal spontaneous speech, fluency, repetition, naming, comprehension, reading, and writing.? Total Score:?30/30.? Neurological Abnormal neurological findings:??none.? Mental Status:?Alert and oriented X 3.?Normal attention, orientation, memory, and affect.? Cranial Nerves:?Pupils are equal, round and reactive to light. Fundoscopy shows normal disc bilaterally. External occular muscles are intact. Visual pierre are full, no ptosis. Face is symmetrical, no facial weakness or droop. Facial sensations are normal. Tongue protrudes in midline. Palate elevates symmetrically. Shoulder shrugging is normal.? Motor Examination:?Normal muscle tone, bulk and strength.?No atrophy or fasciculations.?No drift of the extended upper extremities.?Deep tendon reflexes are 2+.?Plantars are flexor.? Motor Strength:? Proximal Muscles (out of 5):?5 Distal Muscles (out of 5):?5 Neck Flexors (out of 5):?5 Neck Extensors (out of 5):?5 Deltoid (out of 5):?5 Biceps (out of 5):?5 Triceps (out of 5):?5 Serratus Anterior (out of 5):?5 Wrist Extensors (out of 5):?5 APB (out of 5):?5 Finger Spread (out of 5):?5 Ileopsoas (out of 5):?5 Quadriceps (out of 5):?5 Hamstrings (out of 5):?5 Tibialis Anterior (out of 5):?5 Peronei (out of 5):?5 EDB (out of 5):?5 Gastrocnemius (out of 5):?5 Straight Leg Raising:?90 degrees.? Sensory Exam:?Normal light touch, temperature, pinprick, vibration and joint-position sensations.?Rhomberg sign is absent.? Coordination:?No ataxia,?no titubation,?glhytb-pu-wgzb, rpjq-xppp-sipl test, and rapid alternating movements were normal.? Gait Exam:?Within normal limits.? Cerebellar Signs:?Rkvllm-ic-hvnv and funr-lz-wvkl is normal.?No dysdiadochokinesia.? Extrapyramidal System:?No tremor or?rigidity, normal facial expressions.?No bradykinesia. No bradyphrenia. Normal arm swing and posture. No propulsion or retropulsion.? Speech:?Normal,?no dysphasia or dysarthria.? General Examination GENERAL APPEARANCE:??normal,?in no acute distress?,?normal,?in no acute distress.? HEAD:??normocephalic,?atraumatic.? EYES:??sclera non-icteric,?conjunctiva clear.? EARS:??auditory canal clear,?tympanic membrane intact, clear.? NOSE:??no lesions.? ORAL CAVITY:??gums normal,?mucosa moist,?no lesions.? THROAT:??clear.? NECK/THYROID:??no cervical lymphadenopathy,?thyroid normal,?neck supple, full range of motion,?no carotid bruit.? SKIN:??no rashes,?no significant birthmarks.? HEART:??S1, S2 normal,?no murmurs?,?S1, S2 normal,?no murmurs.? LUNGS:??clear anteriorly and posteriorly?,?clear anteriorly and posteriorly.? CHEST:??no gross rib deformity,?clear to auscultation.? BACK:??normal exam of spine.? MUSCULOSKELETAL:??normal.? EXTREMITIES:??no edema?,?no edema.? PERIPHERAL PULSES:??normal.? PSYCH:??alert, oriented,?cognitive function intact,?cooperative with exam?,?alert, oriented,?cognitive function intact,?cooperative with exam.? Assessment & Plan Assessment & Plan (1) Anxiety: Code(s): F41.9 - Anxiety disorder, unspecified Category: Medical (2) Insomnia: Code(s): G47.00 - Insomnia, unspecified Category: Medical (3) Paresthesia: Code(s): R20.2 - Paresthesia of skin Category: Medical (4) Tension headache: Code(s): G44.209 - Tension-type headache, unspecified, not intractable Category: Medical Plan Trial of Amitriptyline 10 -20 mg hs for a month. Reassurance. CT brain in June reported as normal. Medications: New amitriptyline 10 mg PO BEDTIME 30 tabs 2RF Tension ERWIN 30 days Coding Level of Care Code New Pt Level 5 (60862) Diagnoses Anxiety F41.9 Insomnia G47.00 Paresthesia R20.2 Tension headache G44.209
== END 2025-01-02 12:12 | disposition home or self-care (01) ==
LOC: HO.HSM 11:39
PROVIDERS: PCP Internal Medicine; Visit Provider Psychiatry & Neurology Neurology
DX: F41.9 Anxiety disorder, unspecified (principal); G47.00 Insomnia, unspecified; R20.2 Paresthesia of skin; G44.209 Tension-type headache, unspecified, not intractable
CPT/HCPCS: 99204

== ENCOUNTER → 2025-01-02 11:39 | Outpatient (BNVA) | payer MEDICARE, SELFPAY | PROVIDERS: PCP Internal Medicine; Visit Provider Psychiatry & Neurology Neurology | DX: R20.2 Paresthesia of skin (principal); G47.00 Insomnia, unspecified; F41.9 Anxiety disorder, unspecified; G44.209 Tension-type headache, unspecified, not intractable | CPT/HCPCS: 99202 ==

== ENCOUNTER 2025-01-15 13:37 | Outpatient (REF) | payer MEDICARE, SELFPAY ==
--- NOTE | ~2025-01-15 | MM_ITS ---
EXAMINATION(S): 1. MM DIAGNOSTIC DIGITAL BREAST TOMOSYNTHESIS, BILATERAL 2. TARGETED ULTRASOUND OF THE LEFT BREAST CLINICAL INFORMATION: Palpable lump at 12 o'clock position. COMPARISON: April 07, 2023 TECHNIQUE: Digital breast tomosynthesis is performed in both the mediolateral oblique and craniocaudal views along with computer-aided detection (CAD). Synthesized 2D images are generated from the tomosynthesis. FINDINGS: BREAST COMPOSITION: There are scattered areas of fibroglandular density. RIGHT BREAST: No significant masses, suspicious calcifications or other abnormalities are seen. LEFT BREAST: No significant masses, suspicious calcifications or other abnormalities are seen. In particular, no suspicious mammographic findings adjacent to the skin BB marker placed in the upper inner quadrant. Targeted ultrasound of the left breast was performed at the location of the palpable concern. The survey shows a 3.3 x 0.8 x 2.8 cm isoechoic oval solid mass at 11 o'clock position at 10 cm from the nipple. No internal vascularity demonstrated with color Doppler evaluation. Sonographic features are compatible with benign lipoma. MM/MM tomosynthesis diagnostic BI IMPRESSION: RIGHT BREAST: Negative, no mammographic evidence of malignancy. Normal interval follow-up is recommended in 12 months. LEFT BREAST: Palpable concern correlates with solid mass at 11 o'clock position at 10 cm from the nipple with sonographic features compatible with lipoma. Benign, no evidence of malignancy. Normal interval follow-up is recommended in 12 months. ASSESSMENT: BI-RADS: Category 2: Benign RECOMMENDATION: 1. Patient should be managed based on the clinical impression. 2. Otherwise, routine annual screening mammography. Results were provided to the patient at time of visit by the technologist. This patient's information was entered into a reminder system with a target due date for their next mammogram. Electronically signed by: Saroj Kinsey MD 01/15/2025 03:14 PM [facility]
== END 2025-01-15 13:38 | disposition home or self-care (01) ==
LOC: HO.MAMMO 13:37
PROVIDERS: PCP Internal Medicine; Visit Provider Internal Medicine
DX: N63.25 Unspecified lump in the left breast, overlapping quadrants (principal)
CPT/HCPCS: 76642; 77062; 77066

== ENCOUNTER → 2025-01-15 14:30 | Outpatient (BNV) | payer MEDICARE, SELFPAY | PROVIDERS: PCP Internal Medicine; Visit Provider Radiology Body Imaging | DX: N63.22 Unspecified lump in the left breast, upper inner quadrant (principal) | CPT/HCPCS: 76642; 77066; G0279 ==

== ENCOUNTER 2025-02-08 09:54 | Outpatient (AMB) | payer MEDICARE, SELFPAY ==
--- NOTE | 2025-02-08 09:56 | MHC.OFFVIS ---
Vital Signs 02/08/25 09:57 Height 5 ft 1.02 in BP 148/90 H Blood Pressure Location Lt brachial Position Sitting Pulse 96 Pulse Source Monitor Intake Visit Reasons: 3m follow up Public Health Doctor Required: No Exhaust And Muffler Repairer: Exhaust And Muffler Repairer Present Allergies azithromycin (From ZITHROMAX) Allergy (Unknown, Verified 02/08/25 10:00) UNKNOWN Penicillins (PCN) Allergy (Unknown, Verified 02/08/25 10:00) UNKNOWN shellfish derived (shellfish) Allergy (Verified 02/08/25 10:00) Unknown Medication List - Last Reconciled 02/08/25 by KRAIG Delaney acetaminophen (Tylenol Extra Strength) 500 mg PO Q6H PRN albuterol sulfate 0.63 mg inhalation Q4-6H PRN albuterol sulfate 90 mcg/actuation (ProAir HFA) 2 puffs inhalation Q6H PRN calcium phosphate-vitamin D3 250 mg calcium- 250 unit tabs PO cholecalciferol (vitamin D3) 50 mcg PO DAILY 30 days ipratropium-albuterol 0.5 mg-3 mg(2.5 mg base)/3 mL 3 mL inhalation QID PRN lorazepam 0.5 mg PO TID PRN nebulizers As directed omeprazole 20 mg PO BID Oxygen Home Use As directed Symbicort 80-4.5 mcg/actuation (budesonide-formoterol) 2 puffs inhalation BID NS triamcinolone acetonide 0.025% 1 appl topical BID HPI HPI 3m follow up: Details: Jenny Santos is a 65-year-old female past medical history of hypertension, smoking, COPD, home O2, anxiety, chest discomfort who presents for cardiology follow-up. On last visit coronary calcium score was ordered and she tells me she never received a phone call. Today she reports that she is still getting left-sided chest discomfort that is occurring with anxiety and at times with physical activity, overall less than prior reports. She admits to being mostly sedentary and has been staying in the home. She does wear her oxygen daily. She has chronic shortness of breath with exertion, No PND, orthopnea. She has been experiencing some minimal swelling in her right ankle. She has a large patch of eczema on her right lower leg which is now being treated by a property worker. No lightheadedness, presyncope, syncope, falls. She has difficulty with ambulation in his sitting in a wheelchair at this visit. Daughter is present. [facility] Medical History Lipoma of breast Jaundice Chest pain On home O2 History of COVID-19 (~2021) Osteoporosis Personal history of nicotine dependence Chronic respiratory failure COPD (chronic obstructive pulmonary disease) Surgical History History of hysteroscopy History of colonoscopy (~05/03/17) Family History Brother Myocardial infarction Social History Housing: House Alcohol intake: current Alcohol intake frequency: does not drink Patient Tobacco Use Status: Former Tobacco user Years Smoked: (onset 18yo, 1ppd x 43yrs, 40pyh - quit 10/2021) service: No Current occupational status: disabled Cognitive needs: No Hearing needs: No Vision needs: Yes (rx glasses) Review of Systems Const All systems reviewed & are unremarkable except as noted in HPI and below ENT Denies dizziness Card Reports chest pain, Denies chest pain at rest, Denies chest pain with activity, Denies rapid heart rate, Denies pedal edema, Denies edema, Denies leg edema, Denies lightheadedness, Denies palpitations, Denies dyspnea, Reports dyspnea on exertion and Denies orthopnea Resp Denies cough, Denies dyspnea and Reports dyspnea on exertion GI Denies hematochezia and Denies change in stool character Musc Denies abnormal gait, Denies limited range of motion, Denies muscle cramps, Denies muscle weakness, Denies numbness, Denies radiating pain into limb, Denies stiffness and Denies tingling Neuro Denies abnormal gait, Denies dizziness, Denies numbness and Denies tingling Endo Denies palpitations Physical Exam Vital Signs: Last Vital Signs Pulse 96 02/08/25 09:57 BP 148/90 H 02/08/25 09:57 Const General: comfortable and no acute distress Orientation/consciousness: patient oriented x3 HEENT Head: Yes normal to inspection Resp Auscultation: clear to auscultation bilaterally Cardio Palpation: normal PMI Heart sounds: S1 normal heart sound present, S2 normal heart sound present, no gallops, no murmurs and no rubs Skin Other: eczema patches on legs and various parts of body Neuro General: patient oriented x3 Extrem Other: mild edema right ankle Psych Mental Status: mental status grossly normal Office Procedures EKG Details: Today, read by me, sinus rhythm with fusion complexes, rate 96, QTC 444 milliseconds [id number], Complete Assessment & Plan Assessment & Plan (1) Chest pain: Code(s): R07.9 - Chest pain, unspecified Category: Medical Plan: Reports of chest discomfort in the setting of anxiety and at times with physical activity. Cardiac risk factors of hypertension, smoking. Prior ER evaluation for this symptom and she says they told her everything was okay. On prior visit nuclear stress test was discussed and she did not want medications injected. A CTA of the coronary arteries was ordered and she declined having contrast dye. A coronary calcium score was ordered and she states she never received a phone call for it. At this time symptoms are less than what she previously reported. Will pursue the coronary calcium score. I spent time talking with her about a nuclear stress test and she says she will think about it. It is reassuring that her symptoms are not worsening with time. Signs and symptoms of angina reviewed with her. Cardiology follow-up 3-4 months, sooner if needed. (2) Sinus tachycardia: Code(s): R00.0 - Tachycardia, unspecified Category: Medical Plan: EKG shows mild sinus tachycardia. Echocardiogram done 06/13/24 showed EF 55-60%, grade 1 diastolic dysfunction. She has issues with high anxiety which likely contributes. Plan I discussed with the patient that her chest discomfort has been stable, which is reassuring as true cardiac chest pain is often progressive. `[22, 44]` I emphasized that despite this, we still need objective testing to rule out a cardiac cause, as her prior normal echocardiogram does not visualize the coronary arteries. `[45, 46]` I informed her that I would re-order the coronary calcium score, which she did not complete previously. `[47, 56, 59]` I explained that this test helps quantify her risk by measuring calcified plaque. `[23, 47]` We also had a detailed discussion about the nuclear stress test as a better alternative. `[48]` I addressed her concerns by explaining the procedure, which involves a short-acting vasodilator medication to simulate exercise and a low-dose nuclear agent to image blood flow. `[31, 35, 37, 39]` I clarified that any side effects from the vasodilator are brief and reversible with aminophylline, and the nuclear agent itself is symptom-free. `[32, 33, 42]` The patient stated she would consider this test. `[48]` I also reassured her that her unilateral leg swelling is not typical of heart failure. `[51, 52]` I instructed her to contact our office if she does not receive a call to schedule her test within a week and to let me know if she decides to proceed with the stress test. `[57, 60]` We will follow up in 3-4 months. `[60]` Orders: Orders CT Coronary Calcium Score Today I25.10 - Atherosclerotic heart disease of [place] coronary artery without angina pectoris, R07.9 - Chest pain, unspecified Patient Instructions: - An order will be placed for you to get a coronary calcium score. This is a scan to check for buildup in your heart arteries. - If you do not receive a phone call within one week to schedule this test, please call our office so we can help. - Please think about having the nuclear stress test we discussed. It is a more thorough test to check the blood flow to your heart. - If you decide you want to have the nuclear stress test, please send a message to our office. - Follow up in our office in 3 to 4 months. Patient was informed and verbally consented to the use of an ambient scribe for clinic note documentation during this visit. Visit time spent on chart review, interview, assessment, orders, documentation. Coding Level of Care Code Est Pt Level 4 (69519) Add On Problem Visit Only Diagnoses Chest pain R07.9 Sinus tachycardia R00.0 CPT Codes EKG - CPT: 06814-[id number], Complete ([id number]) Time Spent (min) 30
[2025-02-08 09:57] VITALS: BP 148/90; PULSE 96
== END 2025-02-08 10:34 | disposition home or self-care (01) ==
LOC: HO.HCS 09:54
PROVIDERS: PCP Internal Medicine; Visit Provider Nurse Practitioner Family
DX: R07.9 Chest pain, unspecified (principal); R00.0 Tachycardia, unspecified
CPT/HCPCS: 93010; 99214; G2211

== ENCOUNTER → 2025-02-08 09:54 | Outpatient (BNVA) | payer MEDICARE, SELFPAY | PROVIDERS: PCP Internal Medicine; Visit Provider Nurse Practitioner Family | DX: I10 Essential (primary) hypertension (principal); R00.0 Tachycardia, unspecified; R07.9 Chest pain, unspecified; F17.210 Nicotine dependence, cigarettes, uncomplicated | CPT/HCPCS: 93005; 99212 ==